=== PATIENT | female | born 1990 | race Caucasian/White ===

== ENCOUNTER → 2016-04-10 | Outpatient (CLI) | payer OTHER ==
[2016-04-10 14:10] LABS: BASO # 0.1 K/mm3 (0.0-0.2); BASO % 0.7 % (0.0-1.0); EOS # 0.1 K/mm3 (0.0-0.50); EOS % 0.9 % (0.0-3.0); LARGE UNSTAINED CELL # 0.1 K/mm3 (0.0-0.4); LARGE UNSTAINED CELL % 0.9 % (0.0-4.0); LYMPH # 1.5 K/mm3 (1.5-6.5); LYMPH % 16.5 % (24.0-44.0); MEAN CORPUSCULAR HEMOGLOBIN 31.8 pg (27.0-33.0); MEAN CORPUSCULAR HGB CONC 33.7 g/dl (32.0-36.5); MEAN CORPUSCULAR VOLUME 94.2 fl (80.0-96.0); MONO # 0.4 K/mm3 (0.0-0.8); MONO % 4.6 % (0.0-5.0); NEUTROPHILS # 6.4 K/mm3 (1.8-7.7); NEUTROPHILS % 76.4 % (36.0-66.0); PLATELET COUNT, AUTOMATED 216 k/mm3 (150-450); RED CELL DISTRIBUTION WIDTH 12.6 % (11.5-14.5); WHITE BLOOD COUNT 8.4 K/mm3 (4.0-10.0)
== END ==
LOC: M SMT 08:43
PROVIDERS: ATTEND Specialist
DX: Z34.82 Encounter for supervision of other normal pregnancy, second trimester (principal); Z36 Encounter for antenatal screening of mother; Z3A.00 Weeks of gestation of pregnancy not specified
CPT/HCPCS: 36415; 82950; 85025; 86850; 86900; 86901; J2790

== ENCOUNTER → 2016-04-28 | Outpatient (REF) | payer OTHER | LOC: M LAB REF 16:55 | PROVIDERS: ATTEND Advanced Practice Midwife | DX: Z36 Encounter for antenatal screening of mother (principal); Z3A.00 Weeks of gestation of pregnancy not specified ==

== ENCOUNTER → 2016-05-19 | Outpatient (REF) | payer OTHER | LOC: M LAB REF 09:03 | PROVIDERS: ATTEND Physician Assistant | DX: R30.0 Dysuria (principal) ==

== ENCOUNTER → 2016-06-22 | Outpatient (REF) | payer OTHER ==
[~2016-06-22] MED LIST: CALC600T21 PO; COLA100C3 PO; FIBE625T PO; IBUP600T26 PO; OXYC1TAB23 PO; PREN1TAB11 PO
== END ==
LOC: M LAB REF 13:41
PROVIDERS: ATTEND Obstetrics & Gynecology
DX: Z36 Encounter for antenatal screening of mother (principal); Z3A.20 20 weeks gestation of pregnancy

== ENCOUNTER 2016-06-29 09:25 | Inpatient (IN) | payer OTHER ==
[2016-06-29] VITALS (9 sets, daily range): BP systolic 114–150; BP diastolic 55–94
[~2016-06-29] VITALS: Ht 167.6 cm; Wt 65.0 kg
[2016-06-29] MEDS ORDERED: PREN1TAB11 PO (10:05)
[2016-06-29] MEDS ORDERED: FIBE625T PO (10:05)
[2016-06-29] MEDS ORDERED: CALC600T21 PO (10:05)
[2016-06-29] MEDS ORDERED: LACTATED RINGER'S 1000 ML IV STA (10:17)
[2016-06-29] MEDS ORDERED: LR 1,000 ML IV SCH ×2 (10:17→18:45)
[2016-06-29] MEDS ORDERED: BICITRA 30ML SOLN UDC PO ONE (10:30)
[2016-06-29] MEDS ORDERED: ceFAZolin SOD 1 GM in D5W MINI-BAG PLUS 50 ML IV ONE (10:30)
[2016-06-29 10:43] LABS: MEAN CORPUSCULAR HEMOGLOBIN 30.8 pg (27.0-33.0); MEAN CORPUSCULAR HGB CONC 33.9 g/dl (32.0-36.5); MEAN CORPUSCULAR VOLUME 90.8 fl (80.0-96.0); RED CELL DISTRIBUTION WIDTH 12.4 % (11.5-14.5); WHITE BLOOD COUNT 9.6 K/mm3 (4.0-10.0)
[2016-06-29 12:07] LABS: ALT/SGPT 15 U/L (12-78); AST/SGOT 24 U/L (15-37); BILIRUBIN,TOTAL 0.5 MG/DL (0.2-1.0); CREATININE FOR GFR 0.76 MG/DL (0.55-1.02); GLOMERULAR FILTRATION RATE > 60.0 (>60)
[2016-06-29] MEDS ORDERED: MORPHINE PRES-FREE INJ 10 MG/10 ML VIAL (J2274) As Ordered ONE (16:15)
[2016-06-29] MEDS ORDERED: OXYTOCIN INJ 10 UNITS/ML VIAL (J2590) As Ordered ONE (16:15)
[2016-06-29] MEDS ORDERED: dexameTHASONE 4 MG/ML 1ML VIAL (J1100) As Ordered ONE (17:17)
[2016-06-29] MEDS ORDERED: ONDANSETRON 4MG/2ML VIAL (J2405) As Ordered ONE (17:17)
[2016-06-29] MEDS ORDERED: ePHEDrine SULFATE 25 MG/5 ML(5MG/ML) SYRINGE As Ordered ONE (17:20)
[2016-06-29] MEDS ORDERED: PHENYLephrine HCL 500 MCG/5 ML (100MCG/ML) SYRINGE (J2370) As Ordered ONE (17:20)
[2016-06-29] MEDS ORDERED: KETOROLAC 60 MG/2 ML VIAL (J1885) As Ordered ONE (17:27)
[2016-06-29] MEDS ORDERED: PROMETHAZINE 25 MG TAB PO PRN (18:15)
[2016-06-29] MEDS ORDERED: KETOROLAC 30 MG/ML VIAL (J1885) IV SCH (18:15)
[2016-06-29] MEDS ORDERED: MEASLES,MUMPS,RUBELLA VACCINE INJ (MMR-II) (90707) SC SCH (18:15)
[2016-06-29] MEDS ORDERED: RHOGAM 300 MCG (1500 IU) INJ (J2790) IM SCH (18:15)
[2016-06-29] MEDS ORDERED: ONDANSETRON 4MG/2ML VIAL (J2405) IV PRN ×2 (18:15→18:45)
[2016-06-29] MEDS ORDERED: OXYTOCIN DRIP 30 UNITS in APPROPRIATE DILUENT 1 EA IV SCH (18:18)
[2016-06-29] MEDS ORDERED: OXYTOCIN 30 UNITS IN 0.9% NaCl 500ML IV BAG (J2590) As Ordered ONE (18:44)
[2016-06-29] MEDS ORDERED: NALBUPHINE HCL 10 MG/ML AMP (J2300) IV PRN (18:45)
[2016-06-29] MEDS ORDERED: MEPERIDINE INJ 25 MG/ML VIAL (J2175) IV PRN (18:45)
[2016-06-29] MEDS ORDERED: fentaNYL 100 MCG/2 ML INJECTION (J3010) IV PRN (18:45)
[2016-06-29] MEDS ORDERED: OXYC1TAB23 PO (19:04)
[2016-06-29] MEDS ORDERED: IBUP600T26 PO (19:04)
[2016-06-29] MEDS ORDERED: COLA100C3 PO (19:05)
[2016-06-29] MEDS: DOCUSATE SODIUM 100 MG CAP PO SCH (22:30)
[2016-06-29] MEDS: PERCOCET 5MG/325MG TAB PO PRN (22:30)
[2016-06-29] MEDS: LR 1,000 ML IV SCH (22:31)
[2016-06-30] MEDS: KETOROLAC 30 MG/ML VIAL (J1885) IV SCH ×4 (00:03→16:49)
[2016-06-30 02:00] VITALS: BP 111/57
[2016-06-30] MEDS: LR 1,000 ML IV SCH (02:14)
[2016-06-30 06:26] VITALS: BP 109/58
[2016-06-30 06:57] LABS: MEAN CORPUSCULAR HEMOGLOBIN 30.4 pg (27.0-33.0); MEAN CORPUSCULAR HGB CONC 33.3 g/dl (32.0-36.5); MEAN CORPUSCULAR VOLUME 91.4 fl (80.0-96.0); RED CELL DISTRIBUTION WIDTH 12.4 % (11.5-14.5); WHITE BLOOD COUNT 13.6 K/mm3 (4.0-10.0)
[2016-06-30] MEDS: PRENATAL VITAMIN TAB PO SCH (08:33)
[2016-06-30] MEDS: PERCOCET 5MG/325MG TAB PO PRN ×4 (08:33→22:32)
[2016-06-30] MEDS: DOCUSATE SODIUM 100 MG CAP PO SCH ×2 (08:33→20:05)
[2016-06-30 09:58] VITALS: BP 119/69
[2016-06-30 14:00] VITALS: BP 138/73
[2016-06-30 17:25] VITALS: BP 136/71
[2016-06-30 22:24] VITALS: BP 143/74
[2016-07-01] MEDS: IBUPROFEN 800 MG TAB PO SCH ×3 (01:32→17:54)
[2016-07-01 01:48] VITALS: BP 128/67
[2016-07-01 06:07] VITALS: BP 128/79
[2016-07-01] MEDS: PRENATAL VITAMIN TAB PO SCH (08:44)
[2016-07-01] MEDS: DOCUSATE SODIUM 100 MG CAP PO SCH ×2 (08:44→22:39)
[2016-07-01] MEDS: PERCOCET 5MG/325MG TAB PO PRN ×3 (08:45→19:49)
[2016-07-01 18:04] VITALS: BP 129/71
[2016-07-02] MEDS: IBUPROFEN 800 MG TAB PO SCH ×2 (01:30→09:17)
[2016-07-02 05:28] VITALS: BP 130/76
[2016-07-02] MEDS: PERCOCET 5MG/325MG TAB PO PRN ×2 (05:40→12:34)
[2016-07-02] MEDS: PRENATAL VITAMIN TAB PO SCH (09:18)
[2016-07-02] MEDS: DOCUSATE SODIUM 100 MG CAP PO SCH (09:18)
--- NOTE | 2016-07-02 14:05 | DSES ---
DATE OF ADMISSION: 06/29/2016 DATE OF DISCHARGE: 07/02/2016 DISCHARGE DIAGNOSIS: Primary section for breech presentation with oligohydramnios. PROCEDURES PERFORMED WHILE IN HOSPITAL: 1. Spinal anesthesia. 2. Primary section. DISCHARGE CONDITION: Stable. HISTORY AND HOSPITAL COURSE: This patient presented at 37 and 4 weeks for primary lower transverse section secondary to breech presentation with oligohydramnios. Her section was uncomplicated, productive of a live born male , score of 9 and 9, weight was 2698 grams or 5 pounds 15 ounces. Estimated blood loss at time of surgery was 500 mL. Mrs. Mejia did well postoperatively. By postoperative day #3 had met all discharge criteria and was discharged home in stable condition. PHYSICAL EXAMINATION DATE OF DISCHARGE: Her vital signs are stable. She is afebrile. General appearance is well-appearing, no acute distress. Her abdomen is soft, appropriately tender. Fundus was below her umbilicus. Incision was clean, dry and intact, well approximated with Steri-Strips, not erythemic. Extremities was negative for calf tenderness. DISCHARGE MEDICATION: - ibuprofen - Percocet - Colace DISCHARGE INSTRUCTIONS: 1. She will be discharged to followup in 2 weeks for incision check. 2. To report severe pain, heavy bleeding, fever, breast-feeding or incisional issues. 3. Remain on pelvic rest for 6 weeks.
== END 2016-07-02 12:50 | disposition home or self-care (01) | DRG 765 ==
LOC: M LDI 09:25 → M OBS 20:26
PROVIDERS: ADMIT Obstetrics & Gynecology; ATTEND Obstetrics & Gynecology
PROC: 0UB60ZX Excision of Left Fallopian Tube, Open Approach, Diagnostic (ICD-10-PCS; 2016-06-29)
PROC: 10D00Z1 Extraction of Products of Conception, Low, Open Approach (ICD-10-PCS; principal; 2016-06-29 16:44)
DX: O32.1XX0 Maternal care for breech presentation, not applicable or unspecified (principal); O41.03X0 Oligohydramnios, third trimester, not applicable or unspecified; Z3A.37 37 weeks gestation of pregnancy; N83.8 Other noninflammatory disorders of ovary, fallopian tube and broad ligament; O26.893 Other specified pregnancy related conditions, third trimester; Z37.0 Single live birth

== ENCOUNTER → 2017-06-13 | Outpatient (REF) | payer OTHER ==
[2017-06-13 19:23] LABS: CHLAMYDIA DNA AMPLIFICATION NEGATIVE (NEGATIVE); GC DNA AMPLIFICATION NEGATIVE (NEGATIVE)
== END ==
LOC: M LAB REF 17:10
DX: Z11.3 Encounter for screening for infections with a predominantly sexual mode of transmission (principal)

== ENCOUNTER → 2017-10-01 | Outpatient (CLI) | payer BC, OTHER ==
[2017-10-01 15:44] LABS: CHLAMYDIA DNA AMPLIFICATION NEGATIVE (NEGATIVE); GC DNA AMPLIFICATION NEGATIVE (NEGATIVE)
[2017-10-01 18:35] LABS: BASO % 0.5 % (0.0-1.0); EOS # 0.1 10^3/uL (0.0-0.50); EOS % 1.1 % (0.0-3.0); HEMATOCRIT 33.2 % (36.0-47.0); HEMOGLOBIN 11.2 g/dl (12.0-15.5); IMMATURE GRANULOCYTE % 0.5 % (0-3.0); LYMPH # 1.6 10^3/uL (1.5-6.5); MEAN CORPUSCULAR HGB CONC 33.7 g/dl (32.0-36.5); MEAN CORPUSCULAR VOLUME 94.9 fl (80.0-96.0); MONO # 0.6 10^3/uL (0.0-0.8); MONO % 7.7 % (0.0-5.0); NEUTROPHILS % 68.2 % (36.0-66.0); PLATELET COUNT, AUTOMATED 227 10^3/uL (150-450); RED CELL DISTRIBUTION WIDTH 12.3 % (11.5-14.5); WHITE BLOOD COUNT 7.3 10^3/uL (4.0-10.0)
[2017-10-03 11:33] LABS: HBsAg Prenatal NEGATIVE (NEGATIVE)
[2017-10-03 11:40] LABS: HEPATITIS C VIRUS ABY INDEX 0.1 INDEX (<0.8)
[2017-10-03 11:41] LABS: HIV 1&2 SCREEN CENTAUR NEGATIVE (NEGATIVE)
[2017-10-03 13:38] LABS: RUBELLA IgG QUALITATIVE IMMUNE (IMMUNE)
== END ==
LOC: M SMT 10:59
DX: Z34.81 Encounter for supervision of other normal pregnancy, first trimester (principal); Z3A.08 8 weeks gestation of pregnancy
CPT/HCPCS: 86762

== ENCOUNTER → 2017-11-14 | Outpatient (CLI) | payer BC, OTHER | LOC: M RAD 14:13 | DX: Z36.89 Encounter for other specified antenatal screening (principal); Z3A.18 18 weeks gestation of pregnancy | CPT/HCPCS: 76811 ==

== ENCOUNTER → 2017-12-12 | Outpatient (CLI) | payer BC, OTHER | LOC: M RAD 14:11 | DX: Z36.89 Encounter for other specified antenatal screening (principal); Z3A.22 22 weeks gestation of pregnancy | CPT/HCPCS: 76816 ==

== ENCOUNTER → 2017-12-31 | Outpatient (CLI) | payer BC, OTHER ==
[2017-12-31 13:47] LABS: HEMATOCRIT 32.5 % (36.0-47.0); HEMOGLOBIN 10.5 g/dl (12.0-15.5); MEAN CORPUSCULAR HEMOGLOBIN 31.2 pg (27.0-33.0); MEAN CORPUSCULAR HGB CONC 32.3 g/dl (32.0-36.5); MEAN CORPUSCULAR VOLUME 96.4 fl (80.0-96.0); PLATELET COUNT, AUTOMATED 219 10^3/uL (150-450); RED BLOOD COUNT 3.37 10^6/uL (4.00-5.40); RED CELL DISTRIBUTION WIDTH 11.9 % (11.5-14.5); WHITE BLOOD COUNT 11.9 10^3/uL (4.0-10.0)
[2017-12-31 14:16] LABS: GLUCOSE CHALLENGE TEST 1 HOUR 70 MG/DL (LESS THAN 140)
[2018-01-01 08:45] LABS: RH ONLY RHOGAM 1 1
== END ==
LOC: M SMT 08:08
DX: Z34.82 Encounter for supervision of other normal pregnancy, second trimester (principal); Z36.89 Encounter for other specified antenatal screening
CPT/HCPCS: 82950

== ENCOUNTER → 2018-01-14 | Outpatient (CLI) | payer BC, OTHER | LOC: M RAD 14:02 | DX: Z36.2 Encounter for other antenatal screening follow-up (principal); Z3A.27 27 weeks gestation of pregnancy | CPT/HCPCS: 76816 ==

== ENCOUNTER → 2018-03-14 | Outpatient (REF) | payer OTHER ==
[~2018-03-14] MED LIST changes: -CALC600T21 PO; +CALC600T60 PO; -COLA100C3 PO; +COLA100C5 PO; +IBUP-1022 PO; -IBUP600T26 PO
== END ==
LOC: M LAB REF 17:01
PROVIDERS: ATTEND Obstetrics & Gynecology
DX: Z34.83 Encounter for supervision of other normal pregnancy, third trimester (principal)

== ENCOUNTER 2018-04-08 11:49 | Inpatient (IN) | payer BC, OTHER ==
[~2018-04-08] VITALS: Ht 167.6 cm; Wt 69.5 kg
[2018-04-08] VITALS (17 sets, daily range): BP systolic 108–159; BP diastolic 59–98
[~2018-04-08 11:49] MED LIST changes: -DIBU10OI TOP; -IBUP-1114 PO; -MAPA500T2 PO; -REGL5TAB2 PO
[2018-04-08] MEDS ORDERED: REGL5TAB2 PO (12:23)
[2018-04-08] MEDS ORDERED: OXYTOCIN DRIP 30 UNITS in APPROPRIATE DILUENT 1 EA IV SCH (12:30)
[2018-04-08] MEDS: LR 1,000 ML IV SCH ×2 (12:50→20:01)
[2018-04-08 13:24] LABS: HEMATOCRIT 30.3 % (36.0-47.0); HEMOGLOBIN 10.3 g/dl (12.0-15.5); MEAN CORPUSCULAR HEMOGLOBIN 30.7 pg (27.0-33.0); MEAN CORPUSCULAR VOLUME 90.2 fl (80.0-96.0); PLATELET COUNT, AUTOMATED 221 10^3/uL (150-450); RED BLOOD COUNT 3.36 10^6/uL (4.00-5.40); WHITE BLOOD COUNT 13.4 10^3/uL (4.0-10.0)
[2018-04-08 13:44] LABS: AMPHETAMINES URINE REFLEX NEGATIVE (NEGATIVE); BARBITURATES URINE REFLEX NEGATIVE (NEGATIVE); BENZODIAZEPINES URINE REFLEX NEGATIVE (NEGATIVE); CANNABINOIDS URINE REFLEX NEGATIVE (NEGATIVE); COCAINE METABOLITE URINE REFLE NEGATIVE (NEGATIVE); CREATININE,RANDOM URINE 73.7 MG/DL; METHADONE URINE REFLEX NEGATIVE (NEGATIVE); OPIATES URINE REFLEX NEGATIVE (NEGATIVE); PHENCYCLIDINE URINE REFLEX NEGATIVE (NEGATIVE); TOTAL PROTEIN,RANDOM URINE 21.8 MG/DL (0.0-12.0)
[2018-04-08 13:51] LABS: ALT/SGPT 12 U/L (12-78); BILIRUBIN,TOTAL 0.4 MG/DL (0.2-1.0); CREATININE FOR GFR 0.65 MG/DL (0.55-1.30); GLOMERULAR FILTRATION RATE > 60.0 (>60); LDH LACTATE DEHYDROGENASE 180 U/L (84-246); URIC ACID 4.6 MG/DL (2.6-6.0)
--- NOTE | 2018-04-08 19:36 | NUR ---
L&D H&P HPI: 27 year old at 39+5 weeks estimated gestation. Expected date of confinement: 04/10/18. dated by first TM. Presents today for induction of labor. Noted to have elevated BP's today (mild range). Denies headache, visual changes, RUQ pain, vaginal bleeding, loss of fluid, or uterine contractions. Reports regular movement. course c/b labs: Blood type O negative, Rhogam given: 01/12/18, antibody screen negative, rubella immune, VDRL nonreactive , hepatitis B surface antigen negative, HIV negative, hepatitis C antibody negative, GC/CT negative, aneuploidy/maternal serum screening: none, 1 hour glucose challenge test: 70, GBS negative. Vaccinations: Tdap 02/11/18 Radiology/OB US: no anomalies or placental abnormalities detected. 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 G2: current Social history: no t/e/d Family history: no MR, VTE Objective Vitals: Mildly hypertensive, normal heart rate, afebrile Heart: Regular rate and rhythm. No murmurs, rubs or gallops. Lungs: Clear to auscultation bilaterally. No wheezes, crackles, rales or rhonchi. Abdomen: Uterine fundal height consistent with dates. No guarding or rebound tenderness. Extremities: No clubbing, cyanosis or edema. Normal deep tendon reflexes. Sterile vaginal exam: 1 cm, 50 %effacement, -3 station, cephalic, intact, +bloody show. External monitoring: heart rate category 1 Tocodynamometer: contractions occurring Labs: Pr/Cr 0.3 Assessment/Plan 27 year old at 39+5 weeks gestation. Diagnosis: GHTN/pre-e, h/o LTCS x 1 desires TOLAC. Reassuring and maternal status. Pt agrees to IOL. Indication: GHTN/pre-e -Admit to labor and delivery with routine labs and orders -External monitoring and tocodynamometer -Pediatrics and anesthesia consultations as needed. -Induction of labor with Pitocin, Cook balloon as needed Dr. Fredy Calderón, DO, FACOG
--- NOTE | 2018-04-08 20:05 | NUR ---
Progress Note Feeling mildly uncomfortable with Pitocin. No further VB, denies LOF. No VELAZQUEZ, visual changes, RUQ pain, sob, cp. Intermittently hypertensive, normal HR, afebrile SVE: /-3 EFM: Cat I [place]: ctxs every 2-4min; pit at 16mU/min Cook balloon inserted; 60ml/40ml. A/P: Reassuring status. Maternal hypertension. TOLAC/IOL, undergoing cervical ripening. -Repeat SVE after Cook balloon falls out. -Continue Pitocin. Adri Calderón DO
[2018-04-09] VITALS (28 sets, daily range): BP systolic 98–140; BP diastolic 51–89
--- NOTE | 2018-04-09 00:51 | NUR ---
Progress Note Feeling significantly uncomfortable with Pitocin. +Bloody show. She denies LOF. No VELAZQUEZ, visual changes, RUQ pain, sob, cp. Intermittently hypertensive, normal HR, afebrile SVE: 3cm/50%/-3; Cook intracervical balloon still in place. EFM: Cat I [place]: ctxs every 2-4min; pit at 18mU/min A/P: Reassuring status. Maternal hypertension. TOLAC/IOL, undergoing cervical ripening. -Repeat SVE after Cook balloon falls out. -Continue Pitocin. Adri Calderón DO
[2018-04-09] MEDS ORDERED: PROMETHAZINE INJ 25 MG/ML VIAL (J2550) IV ONE (03:00)
[2018-04-09] MEDS ORDERED: BUTORPHANOL 2 MG/ML INJ (J0595) IV ONE (03:00)
[2018-04-09] MEDS: LR 1,000 ML IV SCH ×2 (03:16→08:42)
--- NOTE | 2018-04-09 07:30 | NUR ---
Progress Note Feeling significantly uncomfortable, now requesting epidural. Had Stadol/Phenergan IV overnight. +Bloody show. She denies LOF. No VELAZQUEZ, visual changes, RUQ pain, sob, cp. Currently normotensive, normal HR, afebrile SVE: 5cm/50%/-3; Cook balloon out EFM: Cat I [place]: ctxs every 2-4min A/P: Reassuring status. Favorable / ripe cervix. -Epidural -AROM after epidural -Continue Pitocin. Adri Calderón DO
[2018-04-09] MEDS ORDERED: FENTANYL 2MCG/ML ROPIVACAINE 0.2% IN 0.9% NACL 100ML IVBAG As Ordered ONE (07:36)
[2018-04-09] MEDS: FENTANYL/ROPIVACAINE/NACL BAG 100 ML EPIDURAL SCH ×2 (08:01→15:34)
[2018-04-09] MEDS ORDERED: NALOXONE INJ 0.4 MG/1 ML VIAL (J2310) IV PRN (08:45)
[2018-04-09] MEDS ORDERED: ONDANSETRON 4MG/2ML VIAL (J2405) IV PRN ×2 (08:45→17:45)
[2018-04-09] MEDS ORDERED: LACTATED RINGER'S 1000 ML IV PRN (08:45)
[2018-04-09] MEDS ORDERED: diphenhydrAMINE INJ 50MG/ML VIAL (J1200) IV PRN (08:45)
[2018-04-09] MEDS ORDERED: ePHEDrine SULFATE 25 MG/5 ML(5MG/ML) SYRINGE IV PRN (08:45)
[2018-04-09] MEDS ORDERED: REFRIGERATOR IV KEYS XX PRN (08:45)
[2018-04-09] MEDS ORDERED: EPIDURAL COMMENT XX SCH (08:45)
[2018-04-09] MEDS ORDERED: EPIDURAL/PCA KEYS XX PRN (08:45)
--- NOTE | 2018-04-09 12:13 | NUR ---
Progress Note Comfortable with epidural. No LOF. No VELAZQUEZ, visual changes, RUQ pain, sob, cp. Currently normotensive, normal HR, afebrile SVE: 5-6cm, 75%, -2; AROM, clear EFM: Cat I [place]: ctxs every 4-5 min; pit off for now (pit turned off while I was busy doing a on another patient) A/P: Approaching active phase of labor. AROM, clear -Repeat SVE in 4-6 hours or sooner PRN. -Restart Pitocin as needed. Adri Calderón, DO
--- NOTE | 2018-04-09 15:15 | NUR ---
Progress Note Pt feeling lower pelvic pressure. Still comfortable with epidural. LOF/clear with small amount of bloody show. Continues to deny VELAZQUEZ, visual changes, RUQ pain, sob , cp. Normotensive, normal HR, afebrile SVE: 5-6cm/75%/-2 Normal clear liquid/bloody show EFM: Cat I [place]: ctxs every 5-7min; Pit at 8mU/min A/P: Not yet in active labor. Reassuring status. -Repeat SVE in 2-4 hours or sooner PRN -Continue Pitocin. Adri Calderón DO
[2018-04-09] MEDS ORDERED: fentaNYL 100 MCG/2 ML INJECTION (J3010) As Ordered ONE (15:28)
[2018-04-09] MEDS ORDERED: OXYTOCIN 30 UNITS IN 0.9% NaCl 500ML IV BAG (J2590) As Ordered ONE (17:28)
[2018-04-09] MEDS ORDERED: OXYTOCIN DRIP 30 UNITS in APPROPRIATE DILUENT 1 EA IV SCH (17:41)
[2018-04-09] MEDS ORDERED: LR 1,000 ML IV SCH (17:41)
[2018-04-09] MEDS ORDERED: DOCUSATE SODIUM 100 MG CAP PO PRN (17:45)
[2018-04-09] MEDS ORDERED: RHOGAM 300 MCG (1500 IU) INJ (J2790) IM SCH (17:45)
[2018-04-09] MEDS ORDERED: PROMETHAZINE 25 MG TAB PO PRN (17:45)
[2018-04-09] MEDS ORDERED: MEASLES,MUMPS,RUBELLA VACCINE INJ (MMR-II) (90707) SC SCH (17:45)
[2018-04-09] MEDS: IBUPROFEN 800 MG TAB PO PRN (18:09)
--- NOTE | 2018-04-09 18:31 | NUR ---
Delivery note Spontaneous vaginal delivery Estimated gestational age at delivery: 39+6 weeks The active phase and second stage of labor progressed in normal fashion with epidural anesthesia. Patient received Pitocin labor augmentation. The head delivered left occiput anterior and restituted left occiput transverse. No nuchal cord was noted. The anterior shoulder delivered with gentle downward guidance and the remainder of the body delivered with ease. Cord clamping was delayed for approximately 1 minute after delivery. After doubly clamping the cord, I allowed the FOB to cut the cord. The was placed on the patient's chest for immediate bonding. [place] data: Apgars 9 and 10. weight 2960 grams 6 pounds, 8 ounces. Time of delivery: 1714. Sex: Female. The third stage of labor was actively managed with a bolus of IV Pitocin (30 units in 500 mL of normal saline). The placenta delivered completely intact with no missing cotyledons at 1717. A three-vessel cord with a central insertion was noted. After delivery of the placenta, the uterine fundus was approximately 2 cm below the umbilicus and firm. IV Pitocin was continued to maintain uterine tone. A normal, low level of uterine bleeding was noted. The cervix, vagina, vulva and perineum were inspected for lacerations. A first degree laceration was noted. This was repaired with 3-0 Vicryl in typical fashio n. Excellent hemostasis was noted. Estimated blood loss: 300ml. 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 Fredy Calderón D.O., F.A.C.OHarvey.
--- NOTE | 2018-04-09 18:32 | NUR ---
Addendum: Successful . Adri Calderón DO
[2018-04-09] MEDS: ACETAMINOPHEN 500 MG TAB PO PRN (19:31)
[2018-04-10] MEDS: IBUPROFEN 800 MG TAB PO PRN ×2 (02:56→10:56)
[2018-04-10] MEDS: ACETAMINOPHEN 500 MG TAB PO PRN ×2 (05:37→13:13)
--- NOTE | 2018-04-10 05:58 | NUR ---
Day 1 Status post , uncomplicated Subjective Pain is well controlled. Lochia decreasing and minimal. Voiding spontaneously. Tolerating a regular diet. Ambulating without any assistance. Denies any subjective fever/chills/nausea/vomiting/headache/visual changes/shortness of breath/chest pain. Breast feeding. Objective Vitals: Normotensive, normal heart rate, afebrile, adequate urine output. Heart: regular, rate, and rhythm. no murmurs/gallops/rubs Lungs: clear to auscultation bilaterally, no wheezes/crackles/rales/ronchi Abd: soft, nontender, nondistended, uterine fundus is 2cm below umbilicus and firm Ext: no significant edema, nontender, negative Mariela's bilaterally. Assessment/Plan: day 1. Recovering well. Hemodynamically stable, afebrile, good pain control. -Routine care -Discharge to home later tonight or tomorrow -Routine infectious, fever, pain, and bleeding precautions reviewed Dr. Fredy Calderón, [place].O., F.A.C.O.G.
[2018-04-10 06:00] VITALS: BP 110/65
[2018-04-10] MEDS: DIBUCAINE 1% OINTMENT 30GM TOP PRN ×2 (07:49→17:21)
[2018-04-10] MEDS ORDERED: PRENATAL VITAMINS CHEWABLE TABLET PO SCH (09:00)
[2018-04-10] MEDS ORDERED: IBUP-1114 PO (16:04)
[2018-04-10] MEDS ORDERED: MAPA500T2 PO (16:04)
[2018-04-10] MEDS ORDERED: DIBU10OI TOP (16:06)
== END 2018-04-10 18:10 | disposition home or self-care (01) | DRG 807 ==
LOC: M LDI 11:49 → M OBS 04-09 20:11
PROVIDERS: ADMIT Advanced Practice Midwife; ATTEND Obstetrics & Gynecology
PROC: 3E033VJ Introduction of Other Hormone into Peripheral Vein, Percutaneous Approach (ICD-10-PCS; 2018-04-08)
PROC: 10E0XZZ Delivery of Products of Conception, External Approach (ICD-10-PCS; principal; 2018-04-09)
PROC: 0HQ9XZZ Repair Perineum Skin, External Approach (ICD-10-PCS; 2018-04-09)
PROC: 10907ZC Drainage of Amniotic Fluid, Therapeutic from Products of Conception, Via Natural or Artificial Opening (ICD-10-PCS; 2018-04-09)
DX: O14.04 Mild to moderate pre-eclampsia, complicating childbirth (principal); Z37.0 Single live birth; Z3A.39 39 weeks gestation of pregnancy; O34.211 Maternal care for low transverse scar from previous cesarean delivery; O70.0 First degree perineal laceration during delivery

== ENCOUNTER → 2018-04-08 | Outpatient (CLI) | payer OTHER ==
[~2018-04-08] MED LIST changes: +DIBU10OI TOP; +IBUP-1114 PO; +MAPA500T2 PO; +REGL5TAB2 PO
[2018-04-08 13:43] LABS: ALT/SGPT 10 U/L (12-78); BILIRUBIN,TOTAL 0.4 MG/DL (0.2-1.0); GLOMERULAR FILTRATION RATE > 60.0 (>60); LDH LACTATE DEHYDROGENASE 173 U/L (84-246); URIC ACID 4.3 MG/DL (2.6-6.0)
[2018-04-08 13:45] LABS: CREATININE,RANDOM URINE 42.6 MG/DL
== END ==
LOC: M SMT 10:25
PROVIDERS: ATTEND Obstetrics & Gynecology
DX: O16.3 Unspecified maternal hypertension, third trimester (principal)

== ENCOUNTER 2018-04-15 22:10 | Emergency (ER) | payer OTHER ==
[~2018-04-15] VITALS: Ht 167.6 cm; Wt 65.3 kg
[~2018-04-15 22:10] MED LIST changes: +DIBU10OI TOP; +IBUP-1114 PO; +MAPA500T2 PO; +REGL5TAB2 PO
[2018-04-15] MEDS ORDERED: NS 500 ML IV ONE (23:15)
[2018-04-15 23:41] LABS: HEMATOCRIT 25.6 % (36.0-47.0); HEMOGLOBIN 8.3 g/dl (12.0-15.5); MEAN CORPUSCULAR HGB CONC 32.4 g/dl (32.0-36.5); MEAN CORPUSCULAR VOLUME 92.4 fl (80.0-96.0); PLATELET COUNT, AUTOMATED 272 10^3/uL (150-450); RED BLOOD COUNT 2.77 10^6/uL (4.00-5.40); WHITE BLOOD COUNT 11.1 10^3/uL (4.0-10.0)
[2018-04-16 00:06] LABS: ALBUMIN 2.8 GM/DL (3.2-5.2); ALT/SGPT 36 U/L (12-78); BILIRUBIN,DIRECT < 0.1 MG/DL (0.0-0.2); BILIRUBIN,TOTAL 0.2 MG/DL (0.2-1.0); BLOOD UREA NITROGEN 14 MG/DL (7-18); CALCIUM LEVEL 8.3 MG/DL (8.5-10.1); CARBON DIOXIDE LEVEL 24 MEQ/L (21-32); CHLORIDE LEVEL 108 MEQ/L (98-107); CREATININE FOR GFR 0.67 MG/DL (0.55-1.30); GLOMERULAR FILTRATION RATE > 60.0 (>60); GLUCOSE, FASTING 84 MG/DL (70-100); POTASSIUM SERUM 3.5 MEQ/L (3.5-5.1); SODIUM LEVEL 142 MEQ/L (136-145); TOTAL PROTEIN 6.1 GM/DL (6.4-8.2)
[2018-04-16 00:09] VITALS: BP 138/83
--- NOTE | 2018-04-17 17:24 | ECGEPIP ---
Stationary ECG Study [facility] - ED Test Date: 2018-04-15 Pat Name: KEN PANG Department: Room: - Gender: F Content Developer: : 1990 Requested By: MRAIETTA HAGER Order Number: [id number] Reading MD: Dora Cline Measurements Intervals [place] Rate: 56 P: 62 OR: 132 QRS: 57 QRSD: 84 T: 36 QT: 403 QTc: 392 Interpretive Statements SINUS BRADYCARDIA WITH SINUS ARRHYTHMIA NO PRIOR FOR COMPARISON Electronically Signed On 04-17-2018 17:23:35 EST by Dora Cline
== END 2018-04-16 00:38 | disposition home or self-care (01) ==
LOC: M ED 22:10
DX: Z01.30 Encounter for examination of blood pressure without abnormal findings (principal); R94.31 Abnormal electrocardiogram [ECG] [EKG]

== ENCOUNTER → 2018-06-20 | Outpatient (CLI) | payer OTHER | LOC: M SMT 10:07 | PROVIDERS: ATTEND Obstetrics & Gynecology | DX: Z12.4 Encounter for screening for malignant neoplasm of cervix (principal) | CPT/HCPCS: 36415; G0123 ==

== ENCOUNTER → 2018-07-16 | Outpatient (REF) | payer OTHER ==
[2018-07-16 14:14] LABS: BASO # 0.1 10^3/uL (0.0-0.2); BASO % 0.9 % (0.0-1.0); EOS # 0.1 10^3/uL (0.0-0.50); EOS % 1.1 % (0.0-3.0); HEMATOCRIT 37.9 % (36.0-47.0); LYMPH # 2.1 10^3/uL (1.5-6.5); LYMPH % 37.7 % (24.0-44.0); MEAN CORPUSCULAR HEMOGLOBIN 29.6 pg (27.0-33.0); MEAN CORPUSCULAR HGB CONC 31.7 g/dl (32.0-36.5); MEAN CORPUSCULAR VOLUME 93.6 fl (80.0-96.0); MONO # 0.4 10^3/uL (0.0-0.8); NEUTROPHILS # 2.9 10^3/uL (1.8-7.7); NEUTROPHILS % 52.1 % (36.0-66.0); PLATELET COUNT, AUTOMATED 253 10^3/uL (150-450); RED BLOOD COUNT 4.05 10^6/uL (4.00-5.40); WHITE BLOOD COUNT 5.5 10^3/uL (4.0-10.0)
== END ==
LOC: M LAB REF 12:44
PROVIDERS: ATTEND Family Medicine
DX: Z13.0 Encounter for screening for diseases of the blood and blood-forming organs and certain disorders involving the immune mechanism (principal)

== ENCOUNTER → 2019-08-08 | Outpatient (REF) | payer OTHER ==
[2019-08-08 13:47] LABS: HEMOGLOBIN 12.6 g/dl (12.0-15.5); MEAN CORPUSCULAR HEMOGLOBIN 31.2 pg (27.0-33.0); MEAN CORPUSCULAR HGB CONC 33.2 g/dl (32.0-36.5); MEAN CORPUSCULAR VOLUME 94.1 fl (80.0-96.0); PLATELET COUNT, AUTOMATED 249 10^3/uL (150-450); RED BLOOD COUNT 4.04 10^6/uL (4.00-5.40); WHITE BLOOD COUNT 8.7 10^3/uL (4.0-10.0)
[2019-08-08 15:01] LABS: HEPATITIS B SURFACE ANTIGEN NEGATIVE (NEGATIVE); HIV 1&2 SCREEN CENTAUR NEGATIVE (NEGATIVE)
[2019-08-08 15:51] LABS: CHLAMYDIA DNA AMPLIFICATION NEGATIVE (NEGATIVE); GC DNA AMPLIFICATION NEGATIVE (NEGATIVE)
== END ==
LOC: M PLALAB 10:35
PROVIDERS: ATTEND Obstetrics & Gynecology
DX: Z3A.01 Less than 8 weeks gestation of pregnancy (principal)

== ENCOUNTER → 2019-10-22 | Outpatient (CLI) | payer OTHER ==
--- NOTE | 2019-12-12 15:37 | REP ---
OBSTETRIC ULTRASOUND FOR ANATOMY [place] in reporting results from malfunction of the hospital computer system as the result of a malware attack. FINDINGS: There is a single intrauterine gestation in a transverse lie with the head to the maternal left. The placenta is posterior, grade 0 without previa or abruptio. heart rate is 144 beats per minute. The amniotic fluid volume subjectively is normal. Composite gestational age based on todays measurements is 18 weeks 2 days. Estimated date of confinement (EDC) 03/22/2020. Estimated weight is 224 grams. This is the 34th percentile. Cervix measures 3.9 cm in length. The following anatomic structures are identified and are unremarkable: Cisterna magna, cavum septum pellucidum, thalami, spine, stomach, kidneys, four chamber heart, cardiac right and left ventricular outflow tracts, bladder, three-vessel cord, cord insertion, upper and lower extremities, face, and upper lip. No anomalies are identified. MTDD
== END ==
LOC: M WHC 13:37
PROVIDERS: ATTEND Advanced Practice Midwife
DX: O34.211 Maternal care for low transverse scar from previous cesarean delivery (principal); Z3A.18 18 weeks gestation of pregnancy

== ENCOUNTER → 2019-12-16 | Outpatient (CLI) | payer OTHER ==
[2019-12-16 13:51] LABS: HEMATOCRIT 31.6 % (36.0-47.0); HEMOGLOBIN 10.1 g/dl (12.0-15.5); MEAN CORPUSCULAR HEMOGLOBIN 31.3 pg (27.0-33.0); MEAN CORPUSCULAR VOLUME 97.8 fl (80.0-96.0); PLATELET COUNT, AUTOMATED 214 10^3/uL (150-450); RED BLOOD COUNT 3.23 10^6/uL (4.00-5.40); WHITE BLOOD COUNT 8.5 10^3/uL (4.0-10.0)
== END ==
LOC: M PLALAB 08:31
PROVIDERS: ATTEND Advanced Practice Midwife
DX: Z34.82 Encounter for supervision of other normal pregnancy, second trimester (principal); Z3A.00 Weeks of gestation of pregnancy not specified
CPT/HCPCS: 36415; 82950; 85027; 86850; 86900; 86901; J2790

== ENCOUNTER → 2020-01-13 | Outpatient (CLI) | payer OTHER ==
--- NOTE | 2020-01-13 12:00 | REP ---
INDICATION: M79.89 R LEG SWELLING//SOFT TISSUE DISORDER. COMPARISON: None. TECHNIQUE: Multiple ultrasonographic images of the deep venous structures of the thigh were obtained from the common femoral vein to the popliteal vein along with Doppler interrogation and color flow Doppler images. FINDINGS: There is no abnormal echogenic material seen within any of the visualized deep venous structures that would suggest acute thrombosis. Coaptation is unremarkable throughout. Doppler interrogation shows an expected response to respiratory variability and augmentation. The color flow images show what appears to be a normal vascular pattern throughout. IMPRESSION: There is no ultrasonographic evidence of deep venous thrombosis involving any of the visualized deep venous structures of the thigh, as described above. <Electronically signed by Julito Chavez > 01/13/20 [id number]
== END ==
LOC: M WHC 11:16
PROVIDERS: ATTEND Obstetrics & Gynecology
DX: M79.89 Other specified soft tissue disorders (principal)

== ENCOUNTER → 2020-02-24 | Outpatient (REF) | payer OTHER | LOC: M SFHCWAGY 09:59 | PROVIDERS: ATTEND Obstetrics & Gynecology | DX: Z34.93 Encounter for supervision of normal pregnancy, unspecified, third trimester (principal); Z3A.36 36 weeks gestation of pregnancy ==

== ENCOUNTER → 2020-03-02 | Outpatient (REF) | payer OTHER ==
[2020-03-02 14:39] LABS: HEMATOCRIT 33.8 % (36.0-47.0); HEMOGLOBIN 10.9 g/dl (12.0-15.5); MEAN CORPUSCULAR HEMOGLOBIN 31.3 pg (27.0-33.0); MEAN CORPUSCULAR HGB CONC 32.2 g/dl (32.0-36.5); MEAN CORPUSCULAR VOLUME 97.1 fl (80.0-96.0); PLATELET COUNT, AUTOMATED 184 10^3/uL (150-450); RED BLOOD COUNT 3.48 10^6/uL (4.00-5.40); WHITE BLOOD COUNT 9.9 10^3/uL (4.0-10.0)
[2020-03-02 15:07] LABS: TOTAL PROTEIN,RANDOM URINE 40.4 MG/DL (0.0-12.0)
[2020-03-02 15:12] LABS: ALT/SGPT 11 U/L (12-78); BILIRUBIN,TOTAL 0.4 MG/DL (0.2-1.0); CREATININE FOR GFR 0.55 MG/DL (0.55-1.30); GLOMERULAR FILTRATION RATE > 60.0 (>60); LDH LACTATE DEHYDROGENASE 163 U/L (84-246); URIC ACID 4.4 MG/DL (2.6-6.0)
== END ==
LOC: M PLALAB 09:41
PROVIDERS: ATTEND Obstetrics & Gynecology
DX: O13.9 Gestational [pregnancy-induced] hypertension without significant proteinuria, unspecified trimester (principal)

== ENCOUNTER 2020-03-04 08:17 | Inpatient (IN) | payer OTHER ==
[~2020-03-04] VITALS: Ht 167.6 cm; Wt 77.3 kg
[2020-03-04] VITALS (32 sets, daily range): BP systolic 103–162; BP diastolic 55–95
[2020-03-04] MEDS ORDERED: LACTATED RINGER'S 1000 ML IV STA (09:04)
[2020-03-04] MEDS ORDERED: OXYTOCIN DRIP 30 UNITS in IV 1 EA IV SCH (09:15)
--- NOTE | 2020-03-04 09:20 | HPEPDOC ---
Obstetrical History & Physical General Date of Admission Mar 04, 2020 at 08:17 History of Present Illness 29-year-old at 37+3 weeks gestation. Presents for an induction of labor. Indication for induction: Preeclampsia without severe features She denies vaginal bleeding, loss of fluid or painful, frequent uterine contractions. She reports regular movement. She denies headache, visual changes, right upper quadrant pain, shortness of breath or chest pain. course: 1. History of prior low transverse section and successful ; desires trial of labor. 2. Diagnosed with preeclampsia on 03/02/2020; no evidence of severe features thus far 3. Hyperemesis gravidarum PMH: None SH: LTC S 1 Meds: vitamin,. 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 G2, 03/2018 , / at 39 weeks, induction of labor for preeclampsia Sochx: No tobacco, alcohol or drug use FamHx:. Father, leukemia. Mother, hypertension, colon cancer labs: Blood type O-, antibody screen negative, HepBsAg neg, HIV neg, rubella immune, Hep C antibody negative, RPR nonreactive, CT/GC neg, urine culture negative, 1 hour glucose challenge test 95, GBS negative Imaging: Second trimester ultrasound revealed normal anatomy and no placental abnormalities. Duplex lower extremity veins: No evidence of DVT 01/13/2020 Past Medical History Allergies Coded Allergies: No Known Allergies (Unverified , 04/08/18) Medications Scheduled Vit No.124/Iron/Folic ( Vitamin Tablet) 1 Tab Tab, 1 TAB PO DAILY Physical Examination Physical Examination GENERAL: Alert and oriented times three. BREAST: . ABDOMEN: Gravid and non-tender to touch. FETUS: Is vertex (VTX) by sterile vaginal examination (SVE), fetus is vertex (VTX) by M[place]h. HEART RATE: Regular rate and rhythm. LUNGS: Clear to auscultation (CTA). EXTREMITIES: No edema. No clonus. Deep tendon reflexes (DTRs) + 2. SVE: 1 cm, 50% effacement, -3 station, intact membranes, cephalic presentation, no bloody show EFM: Category 1 heart rate tracing. [place]: Irregular contractions/rare and nonpainful. Laboratory Data 24H LABS Laboratory Tests 2 03/04/20 08:31: Serology Scanned Report Hepatitis B Testing Assessment/Plan Assessment 29-year old at 37+3 weeks gestation. Dx: Preeclampsia without severe features. History of low transverse section 1/ 1. Reassuring maternal and status. Plan Admit and orient. Routine labs/orders with pre-E lab panel Group B Streptococcus (GBS) negative. Start with low-dose Pitocin protocol Counseled on Pitocin and induction of labor (IOL). Risks, benefits, indications and alternatives of trial labor reviewed and patient confirms her plan of trial of labor Mode of delivery plan: TOLAC/; as indicated. MARIBEL VICENTE DO Mar 04, 2020 09:20
[2020-03-04] MEDS: LR 1,000 ML IV SCH ×2 (10:00→20:17)
--- NOTE | 2020-03-04 12:54 | IPNPDOC ---
Obstetrical Progress Note Date of Service Mar 04, 2020 Subjective Mild to moderate discomfort with contractions. No loss of fluid or vaginal bleeding. No headache, visual changes, right upper quadrant pain, shortness of breath or chest pain. Objective Vital Signs Date Time Temp Pulse Resp B/P (MAP) Pulse Ox O2 Delivery O2 Flow Rate FiO2 03/04/20 12:30 87 18 135/88 (104) 03/04/20 11:32 78 18 120/85 (97) 03/04/20 11:01 85 18 119/56 (77) 03/04/20 10:31 90 18 120/62 (81) 03/04/20 10:00 93 18 128/82 (97) 03/04/20 08:31 98.7 118 18 141/88 (105) Laboratory Tests 03/04/20 08:31: Serology Scanned Report Hepatitis B Testing Current Medications Medications (Trade) Dose Ordered Sig/Ronald Route PRN Reason Start Time Stop Time Status Last Admin Dose Admin Lactated Ringer's 1,000 ml @ 125 mls/hr Q8H IV 03/04/20 09:04 03/04/20 10:00 125 MLS/HR Oxytocin 30 units/ IV Miscellaneous Supplies 500 ml @ 0 mls/hr DRIP IV 03/04/20 09:15 03/04/20 10:00 2 MLS/HR Vital Signs Date Time Temp Pulse Resp B/P (MAP) Pulse Ox O2 Delivery O2 Flow Rate FiO2 03/04/20 12:30 87 18 135/88 (104) 03/04/20 08:31 98.7 Assessment Heart Rate Tracing: Category I Tocometer Contractions: Yes Frequency: every 2-5 min. Assessment and Plan Status: Reassuring Anticipate: Vaginal Delivery Additional Comments Preeclampsia without severe features undergoing induction of labor/trial of labor after Continue with Pitocin. Monitor vitals closely Repeat SVE in 2-4 hours MARIBEL VICENTE DO Mar 04, 2020 12:53
[2020-03-04 13:00] LABS: HEMATOCRIT 31.4 % (36.0-47.0); HEMOGLOBIN 10.2 g/dl (12.0-15.5); MEAN CORPUSCULAR HGB CONC 32.5 g/dl (32.0-36.5); MEAN CORPUSCULAR VOLUME 95.4 fl (80.0-96.0); PLATELET COUNT, AUTOMATED 191 10^3/uL (150-450); RED BLOOD COUNT 3.29 10^6/uL (4.00-5.40); WHITE BLOOD COUNT 9.5 10^3/uL (4.0-10.0)
[2020-03-04 13:11] LABS: ALT/SGPT 9 U/L (12-78); BILIRUBIN,TOTAL 0.3 MG/DL (0.2-1.0); CREATININE FOR GFR 0.41 MG/DL (0.55-1.30); GLOMERULAR FILTRATION RATE > 60.0 (>60); LDH LACTATE DEHYDROGENASE 143 U/L (84-246); URIC ACID 3.4 MG/DL (2.6-6.0)
--- NOTE | 2020-03-04 16:23 | IPNPDOC ---
Obstetrical Progress Note Date of Service Mar 04, 2020 Subjective No VB/LOF. Feeling contractions, but significantly uncomfortable. No VELAZQUEZ, visual changes, RUQ pain, sob, cp. Objective Vital Signs Date Time Temp Pulse Resp B/P (MAP) Pulse Ox O2 Delivery O2 Flow Rate FiO2 03/04/20 16:00 72 18 130/84 (99) 03/04/20 15:00 98.9 Assessment Heart Rate Tracing: Category I Tocometer Frequency: every 2-5 min. (pit at 18mU/min) Sterile Vaginal Examination Dilation: 2cm Effacement (%): 50% Station: -3 Cervical Consistency: Medium Cervical Position: Posterior Postion/Presentation: Cephalic presentation Assessment and Plan Status: Reassuring Additional Comments Cook balloon inserted. Small amount of bloody show. Reassuring maternal and status. Continue with Pitocin. DO JULES Cronin JONATHAN R. DO Mar 04, 2020 16:23
--- NOTE | 2020-03-04 19:36 | IPNPDOC ---
Obstetrical Progress Note Date of Service Mar 04, 2020 Subjective No LOF. Small amount of bleeding. No VELAZQUEZ, visual changes, RUQ pain, sob, cp. Objective Vital Signs Date Time Temp Pulse Resp B/P (MAP) Pulse Ox O2 Delivery O2 Flow Rate FiO2 03/04/20 18:30 71 18 134/76 (95) 03/04/20 15:00 98.9 Assessment Heart Rate Tracing: Category I Tocometer Frequency: every 2-5 min. Sterile Vaginal Examination Dilation: 4 cm Effacement (%): 50% Station: -3 Cervical Consistency: Soft Cervical Position: Middle Postion/Presentation: Cephalic presentation Assessment and Plan Status: Reassuring Anticipate: Vaginal Delivery Additional Comments Pt requesting epidural Anesthesia notified. AROM after epidural. MARIBEL VICENTE DO Mar 04, 2020 19:36
[2020-03-04] MEDS ORDERED: FENTANYL 2MCG/ML ROPIVACAINE 0.2% IN 0.9% NACL 100ML IVBAG As Ordered ONE (19:51)
--- NOTE | 2020-03-04 21:30 | IPNPDOC ---
Obstetrical Progress Note Date of Service Mar 04, 2020 Subjective Patient comfortable with epidural. +VB/light. Continues to be without VELAZQUEZ, visual changes, RUQ pain, sob, cp. Objective Vital Signs Date Time Temp Pulse Resp B/P (MAP) Pulse Ox O2 Delivery O2 Flow Rate FiO2 03/04/20 20:01 97.2 76 18 142/65 (90) Assessment Heart Rate Tracing: Category I Tocometer Frequency: every 2-5 min. Sterile Vaginal Examination Dilation: 4 cm Effacement (%): 50% Station: -3 Cervical Consistency: Soft Cervical Position: Middle Postion/Presentation: Cephalic presentation Assessment and Plan Status: Reassuring Anticipate: Vaginal Delivery Additional Comments AROM clear Reassuring maternal and status. Continue Pitocin; adjust as appropriate MARIBEL VICENTE DO Mar 04, 2020 21:29
[2020-03-04] MEDS ORDERED: NALOXONE INJ 0.4MG/1ML VIAL (J2310 PER 1MG) IV PRN (21:45)
[2020-03-04] MEDS ORDERED: ePHEDrine SULFATE 25 MG/5 ML(5MG/ML) SYRINGE IV PRN (21:45)
[2020-03-04] MEDS ORDERED: ONDANSETRON 4MG/2ML VIAL IV PRN (21:45)
[2020-03-04] MEDS ORDERED: EPIDURAL/PCA KEYS XX PRN (21:45)
[2020-03-04] MEDS ORDERED: diphenhydrAMINE 50MG/ML VIAL (J1200) IV PRN (21:45)
[2020-03-04] MEDS ORDERED: REFRIGERATOR IV KEYS XX PRN (21:45)
[2020-03-04] MEDS ORDERED: LACTATED RINGER'S 1000 ML IV PRN (21:45)
[2020-03-04] MEDS ORDERED: EPIDURAL COMMENT XX SCH (21:45)
[2020-03-04] MEDS: FENTANYL/ROPIVACAINE/NACL BAG 100 ML EPIDURAL SCH (23:01)
--- NOTE | 2020-03-04 23:11 | IPNPDOC ---
Obstetrical Progress Note Date of Service Mar 04, 2020 Subjective Pt is comfortable with epidural. No reported symptoms. Objective Vital Signs Date Time Temp Pulse Resp B/P (MAP) Pulse Ox O2 Delivery O2 Flow Rate FiO2 03/04/20 21:16 96 137/82 (100) 03/04/20 20:51 18 99 03/04/20 20:01 97.2 Assessment Heart Rate Tracing: Category II (intermittent variable decelerations; IUPC placed and amnioinfusion started.) Tocometer Contractions: Yes Frequency: every 2-5 min. Sterile Vaginal Examination Dilation: 6 cm Effacement (%): 50% Station: -3 Cervical Consistency: Soft Cervical Position: Middle Postion/Presentation: Cephalic presentation Assessment and Plan Status: Reassuring (FHR improved after amnioinfusion) Anticipate: Vaginal Delivery Additional Comments Continue amnioinfusion Pitocin reduced. Explained interventions to patient and . MARIBEL VICENTE DO Mar 04, 2020 23:11
[2020-03-05] VITALS (31 sets, daily range): BP systolic 102–154; BP diastolic 56–87
[2020-03-05] MEDS: FENTANYL/ROPIVACAINE/NACL BAG 100 ML EPIDURAL SCH (04:49)
--- NOTE | 2020-03-05 06:18 | IPNPDOC ---
Obstetrical Progress Note Date of Service Mar 05, 2020 Subjective Pt comfortable with epidural. No reported symptoms. Objective Vital Signs Date Time Temp Pulse Resp B/P (MAP) Pulse Ox O2 Delivery O2 Flow Rate FiO2 03/05/20 04:22 98.8 03/05/20 01:52 88 18 113/69 (84) 03/04/20 20:51 99 Assessment Heart Rate Tracing: Category I Tocometer Frequency: every 3-7 min. (inadequate MVUs) Sterile Vaginal Examination Dilation: 7 cm Effacement (%): 90% Station: -2 Cervical Consistency: Soft Cervical Position: Middle Postion/Presentation: Cephalic presentation Assessment and Plan Status: Reassuring Additional Comments Reassuring maternal and status. Protracted labor course; concern for arrest of dilation Patient requests we continue efforts at achieving Plan is to increase Pit per protocol. Pt aware of plan and agrees. DO JULES Cronin JONATHAN R. DO Mar 05, 2020 06:18
[2020-03-05] MEDS: LR 1,000 ML IV SCH (07:23)
--- NOTE | 2020-03-05 08:00 | DNPDOC ---
[facility] Delivery Note Delivery Note DATE OF DELIVERY: 03/05/2020 PREDELIVERY DIAGNOSIS:37+4 weeks' gestation and labor, pre-eclampsia, h/o LTCS x 1, TOLAC. 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 ESTIMATED BLOOD LOSS: 300 mL. FINDINGS: 6 pound 7 ounce 2920g , Score 9/9, nuchal cord times . DELIVERY SUMMARY: Patient is a 29-year-old 3 now para 3003 who was admit kermit to labor and delivery for IOL secondary to pre-eclampsia. Patient had a protracted active phase of labor course. With epidural anesthesia and pitocin augmentation, she reached the second stage of labor. The second stage progressed rapidly and after two sets of maternal pushes, the head delivered AAKASH and restituted LOT. No dystocia was encountered, the baby delivered with ease. IV pitocin was bolused to actively manage the third stage of labor. The uterus was firm and 2cm below U. No laceration was noted. Time of delivery: 0653, Placenta: 0657 (intact) Apgars 9,9 BW: 2920g, 6lb 7oz. Female. EBL: 300ml Nuchal x 2 tight. Sponge,instrument counts were correct. DO JULES Cronin JONATHAN R. DO Mar 05, 2020 08:00
[2020-03-05] MEDS ORDERED: OXYTOCIN DRIP 30 UNITS in IV 1 EA IV SCH ×2 (08:01→10:01)
--- NOTE | 2020-03-05 08:09 | IPNPDOC ---
Text Note Date of Service The patient was seen on 03/05/20. NOTE Nursing reported backup bleeding and uterine deviation to right Straight cath for 700ml pink tinged urine. Bimanual exam and cervical sweep for 300ml clots Misoprostol 1000mcg ID given with excellent control of bleeding. Dr Calderón updated on status VS remain stable. VS,Fishbone, I+O VS, Fishbone, I+O Laboratory Tests 03/04/20 09:04 Vital Signs Date Time Temp Pulse Resp B/P (MAP) Pulse Ox O2 Delivery O2 Flow Rate FiO2 03/05/20 07:18 74 125/66 (85) 03/05/20 07:01 18 03/05/20 06:26 99.0 03/04/20 20:51 99 I&O- Last 24 Hours up to 6 AM 03/05/20 06:00 Intake Total 2350 ml Output Total 1350 ml Balance 1000 ml Mickie Justin CNM Mar 05, 2020 08:09
[2020-03-05] MEDS ORDERED: MEASLES,MUMPS,RUBELLA VACCINE INJ (MMR-II) (90707) SC SCH (08:15)
[2020-03-05] MEDS ORDERED: RHOGAM 300 MCG (1500 IU) INJ (J2790) IM SCH (08:15)
[2020-03-05] MEDS ORDERED: ONDANSETRON 4MG/2ML VIAL IV PRN (08:15)
[2020-03-05] MEDS ORDERED: ACETAMINOPHEN TAB 650MG DOSE (2X325MG) PO PRN (08:15)
[2020-03-05] MEDS ORDERED: DOCUSATE SODIUM 100MG CAPSULE PO PRN (08:15)
[2020-03-05] MEDS ORDERED: PROMETHAZINE 25 MG TAB PO PRN (08:15)
[2020-03-05] MEDS ORDERED: miSOPROStol 200 MCG TAB (S0191) PR ONE (08:15)
[2020-03-05] MEDS ORDERED: IBUPROFEN 600MG TAB PO PRN (08:15)
[2020-03-05] MEDS: IBUPROFEN 800 MG TAB PO PRN ×2 (08:34→17:26)
[2020-03-05] MEDS: PRENATAL VITAMINS CHEWABLE TABLET PO SCH (08:37)
[2020-03-05] MEDS: ACETAMINOPHEN 500 MG TAB PO PRN ×2 (09:47→19:45)
[2020-03-05] MEDS ORDERED: METHYLERGONOVINE MALEATE 0.2 MG/ML VIAL (J2210) IM ONE (10:45)
[2020-03-05] MEDS ORDERED: PERCOCET 5MG/325MG TAB PO PRN (13:15)
[2020-03-05] MEDS: BENZOCAINE 20% HEMORRHOIDAL OINTMENT 28GM TUBE TOP PRN (17:25)
[2020-03-05 19:02] LABS: HEMATOCRIT 26.8 % (36.0-47.0); HEMOGLOBIN 8.9 g/dl (12.0-15.5); MEAN CORPUSCULAR HEMOGLOBIN 31.7 pg (27.0-33.0); MEAN CORPUSCULAR HGB CONC 33.2 g/dl (32.0-36.5); MEAN CORPUSCULAR VOLUME 95.4 fl (80.0-96.0); PLATELET COUNT, AUTOMATED 181 10^3/uL (150-450); RED BLOOD COUNT 2.81 10^6/uL (4.00-5.40); WHITE BLOOD COUNT 16.8 10^3/uL (4.0-10.0)
[2020-03-06] MEDS: IBUPROFEN 800 MG TAB PO PRN ×4 (00:41→23:32)
[2020-03-06 02:00] VITALS: BP 130/79
[2020-03-06] MEDS: ACETAMINOPHEN 500 MG TAB PO PRN ×3 (05:15→19:26)
[2020-03-06 05:55] VITALS: BP 123/70
--- NOTE | 2020-03-06 07:01 | IPNPDOC ---
Text Note Date of Service The patient was seen on 03/06/20. NOTE #1 Concepción is status post with PPH. She reports feeling well today, just fatigued and sometimes dizzy when she stands. Denies chest pain, SOB, difficulty breathing, palpitations, tachycardia. She is tolerating a regular diet well. Voiding and stooling without difficulty. Ambulating around her room with ease. She is bottle feeding . Reviewed methods for milk suppression and comfort. Fundus firm, midline, at U-2, small to scant flow, no clots. Reviewed expectations for normal amounts of bleeding. VSS. Plan to recheck CBC this AM, start on Iron PO, and continue to monitor. Discharge home tomorrow. VS,Fishbone, I+O VS, Fishbone, I+O Laboratory Tests 03/05/20 18:20 Vital Signs Date Time Temp Pulse Resp B/P (MAP) Pulse Ox O2 Delivery O2 Flow Rate FiO2 03/06/20 05:55 97.6 84 18 123/70 (87) 03/04/20 20:51 99 I&O- Last 24 Hours up to 6 AM 03/06/20 06:00 Intake Total 750 ml Output Total 4350 ml Balance -3600 ml Mickie Justin CNM Mar 06, 2020 07:01
[2020-03-06] MEDS: PRENATAL VITAMINS CHEWABLE TABLET PO SCH (08:22)
[2020-03-06] MEDS: FERROUS SULFATE 325MG TAB PO SCH ×2 (08:56→21:20)
[2020-03-06] MEDS: DOCUSATE SODIUM 100MG CAPSULE PO SCH ×2 (08:56→21:20)
[2020-03-06 10:06] LABS: HEMATOCRIT 25.6 % (36.0-47.0); HEMOGLOBIN 8.5 g/dl (12.0-15.5); MEAN CORPUSCULAR HEMOGLOBIN 31.4 pg (27.0-33.0); MEAN CORPUSCULAR HGB CONC 33.2 g/dl (32.0-36.5); MEAN CORPUSCULAR VOLUME 94.5 fl (80.0-96.0); PLATELET COUNT, AUTOMATED 189 10^3/uL (150-450); RED BLOOD COUNT 2.71 10^6/uL (4.00-5.40); WHITE BLOOD COUNT 12.5 10^3/uL (4.0-10.0)
[2020-03-06 10:15] VITALS: BP 130/83
[2020-03-06] MEDS: BENZOCAINE 20% HEMORRHOIDAL OINTMENT 28GM TUBE TOP PRN (15:21)
[2020-03-06 18:00] VITALS: BP 126/81
[2020-03-06 22:00] VITALS: BP 147/67
[2020-03-06 23:30] VITALS: BP 136/82
[2020-03-07 02:00] VITALS: BP 129/72
[2020-03-07] MEDS: ACETAMINOPHEN 500 MG TAB PO PRN (04:18)
[2020-03-07 05:49] VITALS: BP 132/71
[2020-03-07] MEDS: BENZOCAINE 20% HEMORRHOIDAL OINTMENT 28GM TUBE TOP PRN ×2 (08:08→17:08)
[2020-03-07] MEDS: PRENATAL VITAMINS CHEWABLE TABLET PO SCH (08:08)
[2020-03-07] MEDS: DOCUSATE SODIUM 100MG CAPSULE PO SCH ×2 (08:08→17:08)
[2020-03-07] MEDS: FERROUS SULFATE 325MG TAB PO SCH (08:08)
[2020-03-07] MEDS: IBUPROFEN 800 MG TAB PO PRN ×2 (08:09→17:09)
--- NOTE | 2020-03-07 09:41 | IPNPDOC ---
Progress Note Date of Service: Mar 07, 2020 Day#: 2 Progress Note PPD 2 SUBJECT: Concepción is a 29yo [id number] s/p successful after undergoing IOL for pre-E withOUT severe features- complicated by PPH with EBL 1200ml, doing well day # 2. She has been ambulating, voiding spontaneously without issue and tolerating regular diet. She had some lightheadedness with ambulation on the first day, but none since. Bottle feeding without issue. Reports lochia is light now. No headaches/vision changes/abdominal pain. No f/c/n/v/CP/SOB. OBJECTIVE: VITAL SIGNS: Within normal limits, afebrile. Alert and oriented times three. Abdomen: Fundus firm at U-2. Soft, NTTP. Extremities: no pain with palpation of calves, 1+ pedal edema BL ASSESSMENT: Concepción is a 29yo [id number] s/p successful after undergoing IOL for pre-E withOUT severe features- complicated by PPH with EBL 1200ml, doing well day # 2. Vitals within normal limits, afebrile, hemodynamically stable with no evidence of infection. PLAN: 1. Discharge to home today if baby's bili is wnl, otherwise will discharge home tomorrow. 2. Tylenol and Motrin for pain. 3. Encourage ambulation. 4. Minipill for contraception for now, plan to switch to combined OCP at 12wk PP 5. BP in clinic mid-week and then routine PP visit in 6 weeks in clinic. 6. Discussed return precautions at length. Petrona Delgado MD VS, I&O, 24H, Fishbone Vital Signs/I&O Vital Signs Date Time Temp Pulse Resp B/P (MAP) Pulse Ox O2 Delivery O2 Flow Rate FiO2 03/07/20 05:49 97.4 92 17 132/71 (91) Room Air 03/06/20 10:15 100 Laboratory Data 24H LABS Laboratory Tests 2 03/06/20 09:54: Nucleated Red Blood Cells % (auto) 0.0 CBC/BMP Laboratory Tests 03/06/20 09:54 Petrona Delgado MD Mar 07, 2020 09:41
[2020-03-07] MEDS ORDERED: IBUP80TA PO (09:46)
[2020-03-07] MEDS ORDERED: NORE0.353 PO (09:46)
[2020-03-07] MEDS ORDERED: DOK1CAP7 PO (09:46)
--- NOTE | 2020-03-07 09:50 | DS.PDOC ---
Discharge Summary General Date of Admission Mar 04, 2020 at 08:17 Date of Discharge Mar 07, 2020 Discharge Summary PROCEDURES PERFORMED DURING STAY: vaginal after section ADMITTING DIAGNOSES: 1. IOL at 37+ weeks for pre-eclampsia withOUT severe features 2. History of prior section DISCHARGE DIAGNOSES: 1. IOL at 37+ weeks for pre-eclampsia withOUT severe features, s/p successful with hemorrhage 1200ml 2. History of prior section COMPLICATIONS/CHIEF COMPLAINT: Induction. HISTORY OF PRESENT ILLNESS/HOSPITAL COURSE: Concepción is a 29yo [id number] s/p successful after undergoing IOL for pre-E withOUT severe features- complicated by PPH with EBL 1200ml, doing well day # 2. At time of discharge, vitals are within normal limits, afebrile, hemodynamically stable with no evidence of infection. No signs/symptoms of worsening pre-eclampsia. DISCHARGE MEDICATIONS: Please see below. ALLERGIES: Please see below. PHYSICAL EXAMINATION ON DISCHARGE: VITAL SIGNS: Within normal limits, afebrile. Alert and oriented times three. Abdomen: Fundus firm at U-2. Soft, NTTP. Extremities: no pain with palpation of calves, 1+ pedal edema BL LABORATORY DATA: Please see below. ACTIVITY: As tolerated, vaginal rest 6 weeks DIET: regular DISPOSITION: home DISCHARGE PLAN/INSTRUCTIONS: 1. Discharge to home today if baby's bili is wnl, otherwise will discharge home tomorrow. 2. Tylenol and Motrin for pain. 3. Encourage ambulation. 4. Minipill for contraception for now, plan to switch to combined OCP at 12wk PP 5. BP in clinic mid-week and then routine PP visit in 6 weeks in clinic. 6. Discussed return precautions at length. DISCHARGE CONDITION: Stable TIME SPENT ON DISCHARGE: Greater than 20 minutes. Petrona Delgado MD Vital Signs/I&Os Vital Signs Date Time Temp Pulse Resp B/P (MAP) Pulse Ox O2 Delivery O2 Flow Rate FiO2 03/07/20 05:49 97.4 92 17 132/71 (91) Room Air 03/06/20 10:15 100 Laboratory Data Labs 24H Laboratory Tests 2 03/06/20 09:54: Nucleated Red Blood Cells % (auto) 0.0 CBC/BMP Laboratory Tests 03/06/20 09:54 Discharge Medications Scheduled Docusate Sodium (Dok) 100 Mg Capsule, 100 MG PO BID Norethindrone (Norethindrone) 0.35 Mg Tablet, 0.35 MG PO DAILY Vit No.124/Iron/Folic ( Vitamin Tablet) 1 Tab Tab, 1 TAB PO DAILY, (Reported) Scheduled PRN Ibuprofen (Ibuprofen) 800 Mg Tablet, 800 MG PO Q8HP PRN for PAIN LEVEL 6-10 Allergies Coded Allergies: No Known Allergies (Unverified , 04/08/18) Petrona Delgado MD Mar 07, 2020 09:50
[2020-03-07] MEDS ORDERED: FERR325T18 PO (09:51)
[2020-03-07 10:06] VITALS: BP 147/69
[2020-03-07 14:14] VITALS: BP 148/92
== END 2020-03-07 17:30 | disposition home or self-care (01) | DRG 807 ==
LOC: M LDI 08:17 → M OBS 03-05 11:38
PROVIDERS: ADMIT Obstetrics & Gynecology; ATTEND Obstetrics & Gynecology
PROC: 3E033VJ Introduction of Other Hormone into Peripheral Vein, Percutaneous Approach (ICD-10-PCS; 2020-03-04)
PROC: 10907ZC Drainage of Amniotic Fluid, Therapeutic from Products of Conception, Via Natural or Artificial Opening (ICD-10-PCS; 2020-03-04)
PROC: 10E0XZZ Delivery of Products of Conception, External Approach (ICD-10-PCS; principal; 2020-03-05)
DX: O14.04 Mild to moderate pre-eclampsia, complicating childbirth (principal); Z37.0 Single live birth; Z3A.37 37 weeks gestation of pregnancy; O34.211 Maternal care for low transverse scar from previous cesarean delivery; O63.0 Prolonged first stage (of labor); O72.1 Other immediate postpartum hemorrhage

== ENCOUNTER 2020-03-15 10:52 | Inpatient (IN) | payer OTHER ==
[~2020-03-15] VITALS: Ht 167.6 cm; Wt 68.9 kg
[2020-03-15] VITALS (25 sets, daily range): BP systolic 109–166; BP diastolic 63–96
[~2020-03-15 10:52] MED LIST changes: +DOK1CAP7 PO; +FERR325T18 PO; +IBUP80TA PO; +NORE0.353 PO
[2020-03-15] MEDS ORDERED: NIFEdipine 10 MG CAP PO STA (11:18)
[2020-03-15] MEDS ORDERED: MAG Sulf (L&D) 4 GM/100 ML 4 GM in IV 1 EA IV ONE (11:30)
[2020-03-15] MEDS: MAG Sulf (OBGYN) 20GM/500ML 20,000 MG in IV 1 EA IV SCH (12:25)
[2020-03-15] MEDS: LR 1,000 ML IV SCH (12:25)
[2020-03-15 12:54] LABS: HEMATOCRIT 33.2 % (36.0-47.0); HEMOGLOBIN 10.7 g/dl (12.0-15.5); MEAN CORPUSCULAR HEMOGLOBIN 30.4 pg (27.0-33.0); MEAN CORPUSCULAR HGB CONC 32.2 g/dl (32.0-36.5); MEAN CORPUSCULAR VOLUME 94.3 fl (80.0-96.0); PLATELET COUNT, AUTOMATED 436 10^3/uL (150-450); RED BLOOD COUNT 3.52 10^6/uL (4.00-5.40)
--- NOTE | 2020-03-15 12:58 | IPNPDOC ---
Text Note Date of Service The patient was seen on 03/15/20. NOTE Subjective: Concepción is a 29-year-old female who is now a who is 10 days . She was induced at 37.3 weeks gestation for preeclampsia. Her blood pressures were mild range prior to leaving hospital for discharge. She presented today for a BP check due for routine . She had a BP of 170/110 in the office and reported visual changes. States her symptoms started last night. Dr. Calderón sent her from the office to be admitted for preeclampsia and to start Mag on her. She denies chest pain, SOB, RUQ pain, or headache. Allergies: NKDA course: 1. History of prior low transverse section with successful x2 2. Diagnosed with preeclampsia 03/02/20 3. History of preeclampsia with previous 4. 03/05/20 Medical: none Surgical history: LTCS x1 Family History: father-leukemia; Mother: hypertension and colon cancer Social history: No history of alcohol abuse or drug abuse. Denies being a smoker. No history of STDs or cervical dysplasia Objective: VS and labs: see below. A+Ox3. Speech is clear and articulate. Respiratory rate is regular without use of accessory muscles and CTA bi laterally. Cardiovascular: RRR, no varicosities noted. Extremities: Generalized edema. No clonus. +3 patellar reflexes bilaterally. Assessment: preeclampsia with severe features Plan: After consulting with Dr. Calderón a plan was made. Prior to her IV being started she received 1 dose of Nifedipine 10 mg. Magnesium 4 gram loading dose was started followed by 2 grams/hour. Preeclamptic labs ordered along with CBC, spot urine, and PT/INR with fibrinogen. Plan has been reviewed with patient and all questions have been answered. Magnesium will be on for 24 hours. We will continue to monitor. VS,Fishbone, I+O VS, Fishbone, I+O Vital Signs Date Time Temp Pulse Resp B/P (MAP) Pulse Ox O2 Delivery O2 Flow Rate FiO2 03/15/20 12:24 91 150/94 (112) Vital Signs Label Value Date Time Pulse 79 03/15/20 1109 Blood Pressure Assessment 162/96 (118) 03/15/20 1109 Source Automatic Cuff (NIBP) Item Value Date Time White Blood Count 8.0 10^3/uL 03/15/20 1236 Red Blood Count 3.52 10^6/uL L 03/15/20 1236 Hemoglobin 10.7 g/dl L 03/15/20 1236 Hematocrit 33.2 % L 03/15/20 1236 Mean Corpuscular Volume 94.3 fl 03/15/20 1236 Mean Corpuscular Hemoglobin 30.4 pg 03/15/20 1236 Mean Corpuscular Hemoglobin Concent 32.2 g/dl 03/15/20 1236 Red Cell Distribution Width 12.6 % 03/15/20 1236 Platelet Count 436 10^3/uL 03/15/20 1236 Item Value Date Time Creatinine 0.84 MG/DL 03/15/20 1216 Glomerular Filtration Rate > 60.0 03/15/20 1216 Uric Acid 5.1 MG/DL 03/15/20 1216 Total Bilirubin 0.3 MG/DL 03/15/20 1216 Aspartate Amino Transf (AST/SGOT) 13 U/L 03/15/20 1216 Alanine Aminotransferase (ALT/SGPT) 25 U/L 03/15/20 1216 Lactate Dehydrogenase 285 U/L H 03/15/20 1216 Item Value Date Time Urine Random Creatinine 31.0 MG/DL 03/15/20 1216 Urine Random Total Protein 5.3 MG/DL 03/15/20 1216 AARON SANTILLAN CNM Mar 15, 2020 12:58
[2020-03-15 13:05] LABS: TOTAL PROTEIN,RANDOM URINE 5.3 MG/DL (0.0-12.0)
[2020-03-15 13:06] LABS: ALT/SGPT 25 U/L (12-78); BILIRUBIN,TOTAL 0.3 MG/DL (0.2-1.0); CREATININE FOR GFR 0.84 MG/DL (0.55-1.30); GLOMERULAR FILTRATION RATE > 60.0 (>60); LDH LACTATE DEHYDROGENASE 285 U/L (84-246); URIC ACID 5.1 MG/DL (2.6-6.0)
[2020-03-15] MEDS: ACETAMINOPHEN 500 MG TAB PO PRN (16:57)
--- NOTE | 2020-03-15 18:04 | IPNPDOC ---
Text Note Date of Service The patient was seen on 03/15/20. NOTE Subjective: Patient reports her visual changes are gone but she now has a h eadache and was given Tylenol 1000 mg PO. Reports she has no other symptoms: no chest pain, no SOB, no visual changes, or epigastric pain. Reports headache is improving with medication. Objective: VS: see below. No change in physical assessment. BP's have improved with one dose of nifedipine and Magnesium. Urine output continues to be normal. Assessment: preeclampsia Plan: Continue to monitor. [place] and staying with patient in room. Consider PO labetalol for discharge. Magnesium to be turned off at 12:30 pm tomorrow afternoon. Repeat labs ordered for tomorrow morning. VS,Fishbone, I+O VS, Fishbone, I+O Laboratory Tests 03/15/20 12:16 03/15/20 12:36 Vital Signs Date Time Temp Pulse Resp B/P (MAP) Pulse Ox O2 Delivery O2 Flow Rate FiO2 03/15/20 16:06 82 129/79 (96) 03/15/20 16:04 100.1 18 AARON SANTILLAN CNM Mar 15, 2020 18:04
[2020-03-15] MEDS ORDERED: LABETALOL 100MG/20ML VIAL IV ONE (19:30)
[2020-03-15] MEDS: DOCUSATE SODIUM 100MG CAPSULE PO PRN (21:09)
[2020-03-15] MEDS: LABETALOL 200 MG TAB PO SCH (21:10)
[2020-03-15] MEDS: PERCOCET 5MG/325MG TAB PO PRN (21:12)
[2020-03-16] VITALS (21 sets, daily range): BP systolic 105–146; BP diastolic 60–86
[2020-03-16] MEDS: MAG Sulf (OBGYN) 20GM/500ML 20,000 MG in IV 1 EA IV SCH ×2 (00:05→09:29)
[2020-03-16] MEDS ORDERED: SUMAtriptan SUCCINATE 25 MG TAB PO ONE (00:30)
[2020-03-16] MEDS: ANUSOL HC CREAM 30GM TOP PRN ×2 (00:50→18:22)
[2020-03-16] MEDS: LR 1,000 ML IV SCH (01:03)
[2020-03-16] MEDS ORDERED: FIORICET TAB PO ONE (03:45)
[2020-03-16] MEDS ORDERED: PROMETHAZINE INJ 25 MG/ML VIAL (J2550) IV ONE (03:45)
[2020-03-16] MEDS ORDERED: BUTORPHANOL 2 MG/ML INJ (J0595) IV ONE (03:45)
[2020-03-16 06:54] LABS: HEMATOCRIT 31.3 % (36.0-47.0); HEMOGLOBIN 9.9 g/dl (12.0-15.5); MEAN CORPUSCULAR HEMOGLOBIN 30.4 pg (27.0-33.0); MEAN CORPUSCULAR HGB CONC 31.6 g/dl (32.0-36.5); PLATELET COUNT, AUTOMATED 381 10^3/uL (150-450); RED BLOOD COUNT 3.26 10^6/uL (4.00-5.40); WHITE BLOOD COUNT 8.7 10^3/uL (4.0-10.0)
[2020-03-16] MEDS: LABETALOL 200 MG TAB PO SCH ×2 (09:05→21:39)
[2020-03-16] MEDS: FIORICET TAB PO PRN ×2 (09:30→14:38)
--- NOTE | 2020-03-16 10:21 | IPNPDOC ---
Text Note Date of Service The patient was seen on 03/16/20. NOTE Subjective: Concepción reports she is doing well. She had a hard time last night with a migraine that she reports she gets frequently. Percocet did not work for her Migraine. Given Imitrex 50 mg PO as she has used this in the past and it has worked well for. Imitrex only slightly decreased her migraine. Offered Stadol and phenergan and patient declined. Given Esgic with success. Denies any current preeclamptic symptoms. Objective: VS: see below. They have been stable all night and this morning. No changes in physical assessment. Assessment: preeclampsia with severe features. Plan: Will continue with Labetalol 200 mg PO BID. Magnesium to be turned off at 12:30 this afternoon. Will continue to monitor BP's. Imitrex and Fioricet sent to pharmacy for discharge medications. Labetalol to be sent tomorrow if we continue with these medications. Reviewed with patient that we may increase her dose or add a second medication if her BP increase after Magnesium is turned off. VS,Radhae, I+O VS, Damonbone, I+O Laboratory Tests 03/15/20 12:16 03/15/20 12:36 03/16/20 06:42 Vital Signs Date Time Temp Pulse Resp B/P (MAP) Pulse Ox O2 Delivery O2 Flow Rate FiO2 03/16/20 10:02 74 128/81 (97) 03/16/20 09:30 18 03/16/20 09:03 98.3 03/15/20 21:17 Room Air I&O- Last 24 Hours up to 6 AM 03/16/20 06:00 Intake Total 5135 ml Output Total 5050 ml Balance 85 ml AARON SANTILLAN CNM Mar 16, 2020 10:21
[2020-03-16] MEDS ORDERED: ESGI1TAB PO (10:22)
[2020-03-16] MEDS ORDERED: IMIT50TA PO (10:25)
[2020-03-16] MEDS ORDERED: SLF 3 ML SYR IV PRN (12:45)
[2020-03-16] MEDS: PERCOCET 5MG/325MG TAB PO PRN (13:24)
[2020-03-16] MEDS: SLF 3 ML SYR IV SCH ×2 (13:26→21:39)
[2020-03-16] MEDS: DOCUSATE SODIUM 100MG CAPSULE PO PRN (18:21)
[2020-03-16] MEDS: ACETAMINOPHEN 500 MG TAB PO PRN (21:42)
[2020-03-17 02:18] VITALS: BP 139/66
[2020-03-17] MEDS: SLF 3 ML SYR IV SCH (05:52)
[2020-03-17] MEDS: ACETAMINOPHEN 500 MG TAB PO PRN (05:53)
[2020-03-17 06:10] VITALS: BP 136/63
[2020-03-17 08:42] VITALS: BP 138/80
[2020-03-17] MEDS: LABETALOL 200 MG TAB PO SCH (08:42)
--- NOTE | 2020-03-17 11:59 | DSES ---
DISCHARGE SUMMARY DATE OF ADMISSION: 03/15/2020 DATE OF DISCHARGE: 03/17/2020 DISCHARGE DIAGNOSIS: 1. preeclampsia. 2. day #12, stable condition. HISTORY: Concepción is a 29-year-old 3 para 3-0-0-3 who presented 10 days with elevated blood pressure in the severe range as well as headache and visualized disturbances. She was admitted for a 24 hour course of magnesium sulfate and underwent preeclamptic labs. She was given one dose of Nifedipine upon arrival and her blood pressures were normotensive following that. She was started on Labetalol 20 mg p.o. b.i.d. and has since had stable normotensive pressures. Most recent vital signs: 98.8, pulse 65, respirations 18, blood pressure 136/63. She currently denies headache, visual disturbances, chest pain as well as right upper quadrant discomfort. LABORATORY DATA: Labs are stable. Hemoglobin is 9.9, hematocrit 31.3, platelets 381,000. LDH 285, ALT 25, AST 13, uric acid was 5.1 on admission. OBJECTIVE: VITAL SIGNS: Stable. Temperature 98.8, pulse is 65, respirations 18, most recent BP of 138/80. GENERAL: She is alert and oriented x3. She is in no discomfort. She is smiling and talkative. HEART: Regular rate and rhythm. LUNGS: Respirations normal and unlabored. ABDOMEN: The incision is healing well. PLAN: Discharge the patient home. She is to present to [facility] one week for a blood pressure check. She is to continue her Labetalol 200 mg p.o. b.i.d. I did review discharge instructions that include access to care and danger signs to report to her provider. All of her questions have been answered and she does request discharge to home today.
== END 2020-03-17 10:35 | disposition home or self-care (01) | DRG 776 ==
LOC: M LDI 10:52 → M OBS 03-16 14:50
PROVIDERS: ADMIT Advanced Practice Midwife; ATTEND Advanced Practice Midwife
DX: O14.15 Severe pre-eclampsia, complicating the puerperium (principal)

== ENCOUNTER → 2020-05-27 | Outpatient (CLI) | payer OTHER ==
[~2020-05-27] MED LIST changes: +ESGI1TAB PO; +IMIT50TA PO
[2020-05-27 13:45] LABS: BASO # 0.1 10^3/uL (0.0-0.2); EOS # 0.1 10^3/uL (0.0-0.5); EOS % 1.7 % (0.0-3.0); LYMPH # 2.3 10^3/uL (1.5-5.0); LYMPH % 39.7 % (24.0-44.0); MEAN CORPUSCULAR HEMOGLOBIN 30.1 pg (27.0-33.0); MEAN CORPUSCULAR HGB CONC 31.7 g/dl (32.0-36.5); MEAN CORPUSCULAR VOLUME 94.9 fl (80.0-96.0); MONO # 0.5 10^3/uL (0.0-0.8); MONO % 8.5 % (2.0-8.0); NEUTROPHILS # 2.8 10^3/uL (1.5-8.5); NEUTROPHILS % 48.9 % (36.0-66.0); PLATELET COUNT, AUTOMATED 268 10^3/uL (150-450); RED BLOOD COUNT 4.32 10^6/uL (4.00-5.40); WHITE BLOOD COUNT 5.7 10^3/uL (4.0-10.0)
[2020-05-27 15:03] LABS: ALBUMIN 4.1 GM/DL (3.2-5.2); ALT/SGPT 33 U/L (12-78); BILIRUBIN,TOTAL 0.7 MG/DL (0.2-1.0); BLOOD UREA NITROGEN 12 MG/DL (7-18); CALCIUM LEVEL 9.2 MG/DL (8.5-10.1); CARBON DIOXIDE LEVEL 27 MEQ/L (21-32); CHLORIDE LEVEL 106 MEQ/L (98-107); CREATININE FOR GFR 0.97 MG/DL (0.55-1.30); FREE T4 0.99 NG/DL (0.76-1.46); GLOMERULAR FILTRATION RATE > 60.0 (>60); GLUCOSE, FASTING 83 MG/DL (70-100); POTASSIUM SERUM 4.3 MEQ/L (3.5-5.1); SODIUM LEVEL 137 MEQ/L (136-145); TOTAL PROTEIN 7.4 GM/DL (6.4-8.2)
== END ==
LOC: M PLALAB 09:49
PROVIDERS: ATTEND Family Medicine
DX: Z13.0 Encounter for screening for diseases of the blood and blood-forming organs and certain disorders involving the immune mechanism (principal); Z13.29 Encounter for screening for other suspected endocrine disorder

== ENCOUNTER → 2021-05-05 | Outpatient (CLI) | payer OTHER ==
[~2021-05-05] MED LIST changes: -DIBU10OI TOP; +DIBU28OI2 TOP; +DOK1CAP4 PO; -DOK1CAP7 PO
== END ==
LOC: M CARPUL 10:16
PROVIDERS: ATTEND Family Medicine
DX: I42.9 Cardiomyopathy, unspecified (principal)

== ENCOUNTER → 2021-05-27 | Outpatient (CLI) | payer OTHER ==
[2021-05-27 10:21] LABS: BASO # 0.1 10^3/uL (0.0-0.2); BASO % 1.2 % (0.0-1.0); EOS # 0.1 10^3/uL (0.0-0.5); EOS % 1.1 % (0.0-3.0); HEMATOCRIT 37.6 % (36.0-47.0); HEMOGLOBIN 12.3 g/dl (12.0-15.5); LYMPH # 1.9 10^3/uL (1.5-5.0); LYMPH % 28.2 % (24.0-44.0); MEAN CORPUSCULAR HGB CONC 32.7 g/dl (32.0-36.5); MEAN CORPUSCULAR VOLUME 94.7 fl (80.0-96.0); MONO # 0.5 10^3/uL (0.0-0.8); MONO % 8.1 % (2.0-8.0); NEUTROPHILS # 4.1 10^3/uL (1.5-8.5); NEUTROPHILS % 61.1 % (36.0-66.0); PLATELET COUNT, AUTOMATED 268 10^3/uL (150-450); RED BLOOD COUNT 3.97 10^6/uL (4.00-5.40); WHITE BLOOD COUNT 6.6 10^3/uL (4.0-10.0)
[2021-05-27 11:09] LABS: ALBUMIN 4.2 GM/DL (3.2-5.2); ALT/SGPT 25 U/L (12-78); BILIRUBIN,TOTAL 0.5 MG/DL (0.2-1.0); BLOOD UREA NITROGEN 10 MG/DL (7-18); CALCIUM LEVEL 9.4 MG/DL (8.5-10.1); CARBON DIOXIDE LEVEL 29 MEQ/L (21-32); CHLORIDE LEVEL 106 MEQ/L (98-107); CHOLESTEROL LEVEL 165 MG/DL (<200); CHOLESTEROL RISK RATIO 2.578 (<5); CREATININE FOR GFR 0.68 MG/DL (0.55-1.30); FERRITIN 27 NG/ML (8-252); FREE T4 1.07 NG/DL (0.76-1.46); GLOMERULAR FILTRATION RATE > 60.0 (>60); GLUCOSE, FASTING 92 MG/DL (70-100); HDL CHOLESTEROL 64 MG/DL (>40); IRON (FE) 66 UG/DL (50-170); LDL CHOLESTEROL 89 MG/DL (<100); NON-HDL-C 101 MG/DL; PERCENT SATURATION 21.2 % (13.2-45.0); POTASSIUM SERUM 4.2 MEQ/L (3.5-5.1); SODIUM LEVEL 138 MEQ/L (136-145); TOTAL IRON BINDING CAPACITY 312 UG/DL (250-450); TOTAL PROTEIN 7.2 GM/DL (6.4-8.2); TRIGLYCERIDES LEVEL 58 MG/DL (<150)
[2021-05-27 11:51] LABS: TOTAL 25(OH) VITAMIN D 24.7 NG/ML (30.0-100.0)
== END ==
LOC: M LAB 09:53
PROVIDERS: ATTEND Family Medicine
DX: R53.83 Other fatigue (principal); Z13.0 Encounter for screening for diseases of the blood and blood-forming organs and certain disorders involving the immune mechanism; Z13.29 Encounter for screening for other suspected endocrine disorder; Z13.220 Encounter for screening for lipoid disorders

== ENCOUNTER → 2022-08-16 | Outpatient (CLI) | payer OTHER ==
[2022-08-16 08:52] LABS: BASO # 0.1 10^3/uL (0.0-0.2); BASO % 0.9 % (0.0-1.0); EOS # 0.1 10^3/uL (0.0-0.5); EOS % 2.1 % (0.0-3.0); HEMATOCRIT 38.3 % (36.0-47.0); HEMOGLOBIN 12.5 g/dl (12.0-15.5); LYMPH # 1.9 10^3/uL (1.5-5.0); LYMPH % 35.3 % (24.0-44.0); MEAN CORPUSCULAR HGB CONC 32.6 g/dl (32.0-36.5); MONO # 0.6 10^3/uL (0.0-0.8); MONO % 10.6 % (2.0-8.0); NEUTROPHILS # 2.7 10^3/uL (1.5-8.5); NEUTROPHILS % 50.9 % (36.0-66.0); PLATELET COUNT, AUTOMATED 220 10^3/uL (150-450); RED BLOOD COUNT 4.03 10^6/uL (4.00-5.40); WHITE BLOOD COUNT 5.4 10^3/uL (4.0-10.0)
[2022-08-16 09:54] LABS: ALBUMIN 4.1 G/DL (3.2-5.2); ALKALINE PHOSPHATASE 74 U/L (46-116); ALT/SGPT 11 U/L (7.0-40); AST/SGOT 11 U/L (<34); BILIRUBIN,TOTAL 0.7 MG/DL (0.3-1.2); BLOOD UREA NITROGEN 12 MG/DL (9-23); CALCIUM LEVEL 8.9 MG/DL (8.5-10.1); CARBON DIOXIDE LEVEL 28 MMOL/L (20-31); CHLORIDE LEVEL 105 MMOL/L (98-107); CHOLESTEROL LEVEL 156 MG/DL (<200); CHOLESTEROL RISK RATIO 2.42 (<5); CREATININE FOR GFR 0.76 MG/DL (0.55-1.30); GLOMERULAR FILTRATION RATE > 60.0 (>60); GLUCOSE, FASTING 86 MG/DL (60-100); HDL CHOLESTEROL 64.4 MG/DL (>40); NON-HDL-C 91.6 MG/DL; SODIUM LEVEL 140 MMOL/L (136-145); TOTAL PROTEIN 6.8 G/DL (5.7-8.2); TRIGLYCERIDES LEVEL 48 MG/DL (<150)
[2022-08-16 09:55] LABS: FREE T4 1.06 NG/DL (0.89-1.76); THYROID STIMULATING HORMONE 2.383 uIU/ML (0.55-4.78); TOTAL 25(OH) VITAMIN D 34.4 NG/ML (20.0-100.0)
== END ==
LOC: M LAB 07:48
PROVIDERS: ATTEND Family Medicine
DX: Z13.0 Encounter for screening for diseases of the blood and blood-forming organs and certain disorders involving the immune mechanism (principal); Z13.220 Encounter for screening for lipoid disorders; E55.9 Vitamin D deficiency, unspecified; Z13.29 Encounter for screening for other suspected endocrine disorder

== ENCOUNTER → 2022-09-01 | Outpatient (CLI) | payer OTHER ==
[2022-09-01 08:32] LABS: LIPASE 33 U/L (12-53)
[2022-09-01 08:33] LABS: AMYLASE 43 U/L (30-118)
[2022-09-01 08:34] LABS: ALBUMIN 4.3 G/DL (3.2-5.2); ALKALINE PHOSPHATASE 73 U/L (46-116); ALT/SGPT 12 U/L (7.0-40); AST/SGOT < 8 U/L (<34); BILIRUBIN,TOTAL 0.7 MG/DL (0.3-1.2); BLOOD UREA NITROGEN 12 MG/DL (9-23); CALCIUM LEVEL 9.2 MG/DL (8.5-10.1); CARBON DIOXIDE LEVEL 28 MMOL/L (20-31); CHLORIDE LEVEL 105 MMOL/L (98-107); CREATININE FOR GFR 0.74 MG/DL (0.55-1.30); GLOMERULAR FILTRATION RATE > 60.0 (>60); GLUCOSE, FASTING 88 MG/DL (60-100); POTASSIUM SERUM 3.9 MMOL/L (3.5-5.1); SODIUM LEVEL 140 MMOL/L (136-145); TOTAL PROTEIN 7.1 G/DL (5.7-8.2)
[2022-09-02 14:08] LABS: TISSUE TRANSGLUTAMINASE IgA <2 U/mL (0-3); TISSUE TRANSGLUTAMINASE IgG <2 U/mL (0-5); UNITSIGA FOR GLIADIN IGA 4 units (0-19); UNITSIGG FOR GLIADIN IGG 5 units (0-19)
== END ==
LOC: M LAB 07:37
PROVIDERS: ATTEND Family Medicine
DX: R19.7 Diarrhea, unspecified (principal)

== ENCOUNTER → 2022-10-19 | Outpatient (CLI) | payer OTHER | LOC: M WHC 09:50 | PROVIDERS: ATTEND Family Medicine | DX: D17.1 Benign lipomatous neoplasm of skin and subcutaneous tissue of trunk (principal) ==

== ENCOUNTER 2022-12-29 09:40 | Day surgery (SDC) | payer OTHER ==
[~2022-12-29] VITALS: Ht 167.6 cm; Wt 57.8 kg
[~2022-12-29 09:40] MED LIST changes: +NS 1,000 ML IV ONE; +PROBCAP14 PO; +RIME75TA SL; +VITA200016 PO; +VITMTA PO
[2022-12-29] MEDS ORDERED: propofoL 200 MG/20 ML VIAL As Ordered ONE ×2 (11:06→11:37)
[2022-12-29] MEDS ORDERED: ONDANSETRON 4MG 2ML VIAL As Ordered ONE (11:40)
[2022-12-29 11:55] VITALS: TEMP 97
[2022-12-29 12:17] VITALS: BP 114/68; O2SAT 100
== END 2022-12-29 12:38 | disposition home or self-care (01) ==
LOC: M OPP 09:40
PROVIDERS: ATTEND Internal Medicine Gastroenterology
DX: Z12.11 Encounter for screening for malignant neoplasm of colon (principal); Z80.0 Family history of malignant neoplasm of digestive organs; K64.8 Other hemorrhoids; Q43.8 Other specified congenital malformations of intestine; Z79.1 Long term (current) use of non-steroidal anti-inflammatories (NSAID); Z79.899 Other long term (current) drug therapy
CPT/HCPCS: 45380; 88305; J2405

== ENCOUNTER → 2023-07-03 | Outpatient (CLI) | payer OTHER ==
[~2023-07-03] MED LIST changes: -NS 1,000 ML IV ONE
[2023-07-03 08:42] LABS: BASO # 0.1 10^3/uL (0.0-0.2); EOS # 0.3 10^3/uL (0.0-0.5); EOS % 3.7 % (0.0-3.0); HEMATOCRIT 36.7 % (36.0-47.0); HEMOGLOBIN 12.1 g/dl (12.0-15.5); LYMPH # 2.2 10^3/uL (1.5-5.0); LYMPH % 32.8 % (24.0-44.0); MEAN CORPUSCULAR HEMOGLOBIN 31.1 pg (27.0-33.0); MEAN CORPUSCULAR VOLUME 94.3 fl (80.0-96.0); MONO # 0.7 10^3/uL (0.0-0.8); MONO % 9.6 % (2.0-8.0); NEUTROPHILS # 3.6 10^3/uL (1.5-8.5); NEUTROPHILS % 52.6 % (36.0-66.0); PLATELET COUNT, AUTOMATED 282 10^3/uL (150-450); RED BLOOD COUNT 3.89 10^6/uL (4.00-5.40); WHITE BLOOD COUNT 6.8 10^3/uL (4.0-10.0)
[2023-07-03 09:15] LABS: ALBUMIN 3.8 G/DL (3.2-5.2); ALKALINE PHOSPHATASE 83 U/L (46-116); ALT/SGPT 12 U/L (7.0-40); AST/SGOT < 8 U/L (<34); BILIRUBIN,TOTAL 0.5 MG/DL (0.3-1.2); BLOOD UREA NITROGEN 11 MG/DL (9-23); CALCIUM LEVEL 9.1 MG/DL (8.5-10.1); CARBON DIOXIDE LEVEL 30 MMOL/L (20-31); CHLORIDE LEVEL 105 MMOL/L (98-107); CHOLESTEROL LEVEL 144 MG/DL (<200); CHOLESTEROL RISK RATIO 2.72 (<5); CREATININE FOR GFR 0.66 MG/DL (0.55-1.30); GLOMERULAR FILTRATION RATE > 60.0 (>60); GLUCOSE, FASTING 92 MG/DL (60-100); HDL CHOLESTEROL 52.8 MG/DL (>40); LDL CHOLESTEROL 77.4 MG/DL (<100); NON-HDL-C 91.2 MG/DL; POTASSIUM SERUM 4.4 MMOL/L (3.5-5.1); SODIUM LEVEL 139 MMOL/L (136-145); TOTAL PROTEIN 6.3 G/DL (5.7-8.2); TRIGLYCERIDES LEVEL 69 MG/DL (<150)
[2023-07-03 09:16] LABS: FREE T4 1.16 NG/DL (0.89-1.76); THYROID STIMULATING HORMONE 1.492 uIU/ML (0.55-4.78)
[2023-07-03 09:17] LABS: TOTAL 25(OH) VITAMIN D 36.7 NG/ML (20.0-100.0)
== END ==
LOC: M LAB 08:05
PROVIDERS: ATTEND Family Medicine
DX: Z13.0 Encounter for screening for diseases of the blood and blood-forming organs and certain disorders involving the immune mechanism (principal); Z13.29 Encounter for screening for other suspected endocrine disorder; Z13.220 Encounter for screening for lipoid disorders; E55.9 Vitamin D deficiency, unspecified

== ENCOUNTER → 2024-07-04 | Outpatient (CLI) | payer OTHER ==
[2024-07-04 10:12] LABS: BASO # 0.1 10^3/uL (0.0-0.2); BASO % 1.1 % (0.0-1.0); EOS # 0.1 10^3/uL (0.0-0.5); EOS % 1.2 % (0.0-3.0); HEMATOCRIT 36.3 % (36.0-47.0); HEMOGLOBIN 11.3 g/dl (12.0-15.5); LYMPH # 1.8 10^3/uL (1.5-5.0); LYMPH % 31.4 % (24.0-44.0); MEAN CORPUSCULAR HEMOGLOBIN 28.4 pg (27.0-33.0); MEAN CORPUSCULAR HGB CONC 31.1 g/dl (32.0-36.5); MEAN CORPUSCULAR VOLUME 91.2 fl (80.0-96.0); MONO # 0.6 10^3/uL (0.0-0.8); MONO % 10.5 % (2.0-8.0); NEUTROPHILS # 3.1 10^3/uL (1.5-8.5); NEUTROPHILS % 55.6 % (36.0-66.0); PLATELET COUNT, AUTOMATED 257 10^3/uL (150-450); RED BLOOD COUNT 3.98 10^6/uL (4.00-5.40); WHITE BLOOD COUNT 5.6 10^3/uL (4.0-10.0)
[2024-07-04 10:36] LABS: ALBUMIN 4.2 G/DL (3.2-5.2); ALKALINE PHOSPHATASE 94 U/L (35-104); ALT/SGPT 13 U/L (7.0-40); AST/SGOT 9 U/L (<34); BILIRUBIN,TOTAL 0.5 MG/DL (0.3-1.2); BLOOD UREA NITROGEN 11 MG/DL (9-23); CALCIUM LEVEL 9.2 MG/DL (8.5-10.1); CARBON DIOXIDE LEVEL 28 MMOL/L (20-31); CHLORIDE LEVEL 105 MMOL/L (98-107); CHOLESTEROL LEVEL 187 MG/DL (<200); CHOLESTEROL RISK RATIO 2.75 (<5); CREATININE FOR GFR 0.71 MG/DL (0.55-1.30); GLOMERULAR FILTRATION RATE > 90.0 (>60); GLUCOSE, FASTING 84 MG/DL (60-100); LDL CHOLESTEROL 108.8 MG/DL (<100); POTASSIUM SERUM 4.2 MMOL/L (3.5-5.1); SODIUM LEVEL 140 MMOL/L (136-145); THYROID STIMULATING HORMONE 2.468 uIU/ML (0.55-4.78); TOTAL 25(OH) VITAMIN D 34.2 NG/ML (20.0-100.0); TOTAL PROTEIN 7.1 G/DL (5.7-8.2); TRIGLYCERIDES LEVEL 51 MG/DL (<150)
[2024-07-04 10:38] LABS: FREE T4 1.23 NG/DL (0.89-1.76)
[2024-07-04 12:51] LABS: IRON (FE) 42 UG/DL (50-170); PERCENT SATURATION 11.3 % (13.2-45.0); TOTAL IRON BINDING CAPACITY 371 UG/DL (250-425)
[2024-07-04 12:53] LABS: FERRITIN 2.5 NG/ML (7.3-270.7); FOLATE > 24.0 NG/ML (>5.4)
[2024-07-04 12:54] LABS: VITAMIN B12 LEVEL 694 PG/ML (211-911)
== END ==
LOC: M LAB 08:52
PROVIDERS: ATTEND Family Medicine
DX: Z13.0 Encounter for screening for diseases of the blood and blood-forming organs and certain disorders involving the immune mechanism (principal)